=== PATIENT | female | born 1940 | race Caucasian/White ===

== ENCOUNTER → 2017-11-29 15:08 | Outpatient (CLI) | payer MEDICARE, SELFPAY ==
--- NOTE | 2017-11-29 15:13 | ECHOD_ITS ---
Reason For Study: Murmur Procedure This was a 2D Doppler, Color Flow transthoracic echocardiogram. Exam performed in department. Left Ventricle Normal LV size. Mild concentric left ventricular hypertrophy. The estimated ejection fraction is 55 %. Transmitral diastolic flow velocities suggest mild (stage 1) diastolic dysfunction (reversed pattern). No regional wall motion abnormalities noted. Right Ventricle Normal RV size. Normal systolic function. Atria Normal left atrium. Normal right atrium. Hypermobile atrial septum. Bubble contrast study negative for right to left interatrial shunt. Mitral Valve Normal mitral valve. Trivial eccentric mitral valve insufficiency. Tricuspid Valve Normal tricuspid valve. Mild (1+) tricuspid valve insufficiency. Pulmonary artery systolic pressure is 29 mmHg. Aortic Valve Trisinus/trileaflet aortic valve. Mild focal aortic valve calcification. Pulmonic Valve Normal pulmonic valve. Great Vessels Normal aortic root. The pulmonary artery is normal size. Normal inferior vena cava. Pericardium/Pleural No pericardial effusion. Medication 22 gauge I.V. with prn adaptor inserted into right arm. Performed a rapid injection of agitated mix of 9 cc saline and 1cc air to assess for atrial septal defect. MMode/2D Measurements & Calculations LVIDd: 3.5 cm IVSd: 1.2 cm LVOT diam: 1.9 cm LVIDs: 2.3 cm LVPWd: 1.3 cm LVOT area: 2.9 cm2 FS: 33.4 % Ao root diam: 2.9 cm LAV(MOD-bp): 41.9 ml LA dimension: 3.0 cm LAV(MOD-bp) Indexed: 29.0 ml/m2 LA A4 area: 14.7 cm2 LAV(MOD-sp2): 49.5 ml LAV(MOD-sp4): 35.6 ml RA A4 area: 12.4 cm2 Doppler Measurements & Calculations MV E max tom: 52.2 cm/sec Lat Peak E' Tom: 6.1 cm/sec Med Peak E' Tom: 2.8 cm/sec MV A max tom: 92.5 cm/sec E/E' lat: 8.5 E/E' med: 18.8 MV E/A: 0.56 Ao V2 max: 195.5 cm/sec LV V1 max: 127.5 cm/sec SV(LVOT): 78.0 ml Ao max P.3 mmHg LV V1 max P.5 mmHg Ao V2 mean: 139.6 cm/sec LV V1 mean P.2 mmHg Ao mean P.6 mmHg LV V1 mean: 84.7 cm/sec Ao V2 VTI: 40.9 cm LV V1 VTI: 26.6 cm SERGEY(I,D): 1.9 cm2 SERGEY(V,D): 1.9 cm2 PA V2 max: 98.2 cm/sec TR max tom: 258.7 cm/sec TR max P.8 mmHg Interpretation Summary Hypermobile atrial septum. Normal LV size. Mild concentric left ventricular hypertrophy. The estimated ejection fraction is 55 %. Transmitral diastolic flow velocities suggest mild (stage 1) diastolic dysfunction (reversed pattern). Mild (1+) tricuspid valve insufficiency. Pulmonary artery systolic pressure is 29 mmHg. Ordering Physician: Meghan Martinez Referring Physician: Meghan Martinez Performed By: Sherron Oakes RDCS
== END ==
PROVIDERS: Family Provider Family Medicine; PCP Family Medicine; Visit Provider Family Medicine
DX: R01.1 Cardiac murmur, unspecified (principal)
CPT/HCPCS: 93306

== ENCOUNTER 2018-12-24 17:29 | Emergency (ER) | payer MEDICARE, SELFPAY ==
[2018-12-24 17:30] VITALS: BP 154/93; PULSE 76; RESP 15; TEMP 36.6; O2SAT 94; BMI 22.3
--- NOTE | 2018-12-24 19:04 | US_ITS ---
STUDY: VENOUS DOPPLER ULTRASOUND - RIGHT LOWER EXTREMITY REASON FOR EXAM: Female, 78 years old. Lump behind right knee and calf pain TECHNIQUE: Ultrasound evaluation of the deep vein system to include garcias-scale imaging and compression was performed. Garcias-scale imaging and Doppler sonographic evaluation, including duplex spectral analysis and qualitative color flow sonography, was performed. COMPARISON: None. FINDINGS: Common Femoral Vein: Normal compression, spontaneity and augmentation. Normal color Doppler. Common Femoral Vein/Greater Saphenous Junction: Normal compression. No internal echoes are seen. Deep Femoral Vein: Not imaged Femoral Proximal: Normal compression. No internal echoes. Femoral Middle: Normal compression, spontaneity and augmentation. Normal color Doppler. Femoral Distal: Normal compression. No internal echoes. Popliteal Vein: Normal compression, spontaneity and augmentation. Normal color Doppler. Posterior Tibial Vein: Normal compression. No internal echoes. Peroneal Vein: Normal compression. No internal echoes. US/Venous Duplex Imag/Limited/Uni IMPRESSION: There is no evidence of deep venous thrombosis. No soft tissue lump or cyst is identified. Electronically Signed: Anupam Black MD at 20:04 EDT , Service support ,
--- NOTE | 2018-12-24 19:51 | ED.VISSUMM ---
- ER Visit Summary Date of Service: 12/24/18 Chief Complaint: Right calf pain History of Present Illness: The patient is a 78 F presenting with right calf pain. She states approximately 1 week ago she twisted her knee and felt that she sprained her knee. She states it was swollen. She has been wearing a knee brace. She has been limping. She states that her knee has improved and she now has pain of her right calf. She is able to ambulate. She denies chest pain or shortness of breath. Denies fever. Denies other complaints. Physical Examination: Vitals are stable. Patient is afebrile. Alert no acute distress. HEENT exam is unremarkable. Neck is supple. Lungs are clear and equal bilaterally. Heart is regular rate and rhythm. Extremities mild right calf tenderness. Knee is nontender. Normal distal pulses. No swelling, warmth, or erythema. Skin is warm and dry. No focal neurologic deficit. Remainder of exam is unremarkable. Emergency Department Course and Treatment: Ultrasound right lower extremity shows no evidence of DVT. Patient is advised to follow-up with her primary care physician. Advised return to ED if worsening complaints. Disposition: Discharge home Impression: Right lower extremity pain This note was generated with [employer] dictation software. It may contain incorrect words, spelling, and punctuation that were not noted in review of the chart prior to signing ED Disposition - Plan for ED Patient: Referrals: Meghan Martinez MD [Primary Care Provider] -
--- NOTE | 2018-12-24 19:57 | ED.DEP ---
ED Disposition - Plan for ED Patient: Instructions: Muscle Spasm Referrals: Meghan Martinez MD [Primary Care Provider] -
[2018-12-24 20:06] VITALS: BP 142/88; PULSE 94; RESP 16; O2SAT 97
== END 2018-12-24 20:06 | disposition home or self-care (01) ==
LOC: ED 19:15
PROVIDERS: Emergency Provider Emergency Medicine; Family Provider Family Medicine; PCP Family Medicine
DX: M79.661 Pain in right lower leg (principal)
CPT/HCPCS: 93971; 99282

== ENCOUNTER 2020-03-28 15:48 | Emergency (ER) | payer MEDICARE, SELFPAY ==
[2020-03-28 15:49] VITALS: BP 161/89; PULSE 74; RESP 16; TEMP 35.9; TEMP 36.5; O2SAT 97; BMI 23.6
--- NOTE | 2020-03-28 16:08 | ED.DCSUM_ITS ---
- ER Visit Summary Date of Service: 03/28/20 Chief Complaint: Fall History of Present Illness: The patient is a 79 F presenting after fall. This occurred on Sunday. She states she was walking on uneven driveway and lost her balance and fell. She complains of left hand and left hip pain. She is able to ambulate with pain. She has tried Tylenol and ibuprofen at home. She is not on anticoagulants. She did not hit her head or lose consciousness. Denies other injuries. Physical Examination: Vitals are stable. Patient is afebrile. Alert no acute distress. HEENT exam is unremarkable. Neck is nontender Lungs are clear and equal bilaterally. Heart is regular rate and rhythm. Abdomen is soft nontender nondistended. Extremities left posterior hip tenderness, neurovascularly intact distally. Left hand palmar abrasion Skin is warm and dry. No focal neurologic deficit. Remainder of exam is unremarkable. Emergency Department Course and Treatment: Patient was given tetanus IM. 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 No acute fracture noted. Lumbar xray shows mild scoliosis. Spondylosis. Grade 2 spondylolisthesis and spondylolysis L5-S1. Patient is able to ambulate in the emergency department. Bacitracin was applied to left hand abrasion. She is given prescription for [place]. Advised to follow-up with orthopedics as needed. Advised return to ED if worsening complaints. Disposition: Discharge home Impression: Status post mechanical fall, left hip contusion, left hand abrasion This note was generated with [employer] dictation software. It may contain incorrect words, spelling, and punctuation that were not noted in review of the chart prior to signing ED Disposition - Plan for ED Patient: Instructions: ED Mechanical Fall Prescriptions: Hydrocodone Bitart/Apap 5-325 [[place] 5MG-325MG] 1 tab PO Q6H PRN PRN 3 Days #10 tab PRN Reason: Pain Prescription Printed Referrals: Meghan Martinez MD [Primary Care Provider] - Alexandr Saavedra MD [STAFF PHYSICIAN] -
--- NOTE | 2020-03-28 16:20 | RAD_ITS ---
STUDY: X-RAY - PELVIS AND LEFT HIP REASON FOR EXAM: Female, 79 years old. PAIN S/P FALL X2 DAYS AGO TECHNIQUE: 3 views of the pelvis and hip. COMPARISON: 05/09/2017 FINDINGS: There is a non-specific bowel gas pattern. Normal visualized soft tissue structures. Bilateral total hip arthroplasty in anatomic alignment. Normal bilateral iliac wings, sacroiliac joints and visualized sacrum. Normal bilateral superior and inferior pubic rami. Normal pubic symphysis. Normal bilateral ischial tuberosities. Normal visualized femoral head. Normal acetabulum. Normal hip joint. RAD/HIP, UNI W/ Pelvis 2-3 Views IMPRESSION: Bilateral total hip arthroplasties. No acute fracture noted. Electronically Signed: Froylan Stern MD at 16:56 EST , Service support ,
--- NOTE | 2020-03-28 16:20 | RAD_ITS ---
STUDY: X-RAY - LUMBAR SPINE REASON FOR EXAM: Female, 79 years old. PAIN S/P FALL X2 DAYS AGO TECHNIQUE: 3 view(s) of the lumbar spine were obtained. COMPARISON: None FINDINGS: Normal lumbar lordosis. Mild dextroconvex scoliosis. Grade 2 spondylolisthesis L5-S1. Pars defects. Moderate spondylosis. Normal vertebral bodies and endplates. There is multi-level degenerative disc disease with multi-level disc space narrowing. The soft tissue structures are unremarkable. RAD/Lumbar Spine 2 or 3 Views IMPRESSION: Mild scoliosis. Spondylosis. Grade 2 spondylolisthesis and spondylolysis L5-S1. Electronically Signed: Froylan Stern MD at 16:58 EST , Service support ,
--- NOTE | 2020-03-28 16:20 | RAD_ITS ---
STUDY: X-RAY - LEFT HAND REASON FOR EXAM: Female, 79 years old. PAIN S/P FALL X2 DAYS AGO TECHNIQUE: 3 view(s) of the hand. COMPARISON: None. FINDINGS: Normal radiocarpal articulation. Normal distal radioulnar joint. Normal visualized carpal bones. Normal carpal articulations There is degenerative arthrosis of the carpometacarpal (CMC) articulation of the thumb. Normal second through fifth carpometacarpal joints. Normal metacarpi. Normal metacarpophalangeal joint of the thumb. Normal interphalangeal joint of the thumb. Normal proximal and distal phalanges of the thumb. Normal metacarpophalangeal joints of the second through fifth fingers. There is diffuse articular joint space narrowing of the proximal and distal interphalangeal joints of the second through fifth fingers, but without erosive changes or periarticular soft tissue swelling. Normal phalanges of the second through fifth fingers. The soft tissue structures are unremarkable. RAD/Hand Min 3 Views IMPRESSION: Degenerative joint disease of the hand, as described above. Electronically Signed: Froylan Stern MD at 16:54 EST , Service support ,
[2020-03-28] MEDS: Diphth,Pertuss(Acell),Tet Vac 0.5 ML Vial IM (16:33)
--- NOTE | 2020-03-28 17:08 | ED.DEP ---
ED Disposition - Plan for ED Patient: Instructions: ED Mechanical Fall Prescriptions: Hydrocodone Bitart/Apap 5-325 [[place] 5MG-325MG] 1 tab PO Q6H PRN PRN 3 Days #10 tab PRN Reason: Pain Prescription Printed Referrals: Meghan Martinez MD [Primary Care Provider] - Alexandr Saavedra MD [STAFF PHYSICIAN] -
== END 2020-03-28 17:32 | disposition home or self-care (01) ==
LOC: ED 16:44
PROVIDERS: Emergency Provider Emergency Medicine; PCP Family Medicine
DX: M25.552 Pain in left hip (principal); S70.02XA Contusion of left hip, initial encounter; S60.512A Abrasion of left hand, initial encounter; W19.XXXA Unspecified fall, initial encounter
CPT/HCPCS: 72100; 73130; 73502; 90471; 90715; 99282

== ENCOUNTER 2021-09-16 23:34 | Emergency (ER) | payer MEDICARE, SELFPAY ==
--- NOTE | 2021-09-16 00:10 | RAD_ITS ---
STUDY: AP PORTABLE UPRIGHT CHEST X-RAY OF 0011 HOURS ON 09/17/2021 REASON FOR EXAM: 81-year-old female with chest pain. TECHNIQUE: A single view AP portable upright chest x-ray was performed per protocol. COMPARISON: 10/26/2013. FINDINGS: Mild demineralization. Mild cardiomegaly with a left ventricular cardiac configuration. No heart failure. No pulmonary infiltrates, atelectasis, effusion, or pulmonary mass lesions. No significant interval change since previous study of 10/26/2013. RAD/Chest 1 View (Portable) IMPRESSION: 1. Mild cardiomegaly with a left ventricular cardiac configuration, but no heart failure. 2. No other evidence of active cardiopulmonary disease. 3. Mild demineralization. 4. No interval change since the previous study of 10/26/2013. Electronically Signed: Will Byrne MD at 0:47 EDT ,
[2021-09-16 23:35] VITALS: BP 219/110; PULSE 73; RESP 18; TEMP 36.7; O2SAT 99; BMI 22.1
[2021-09-16 23:57] VITALS: BP 186/96; PULSE 71; RESP 22; O2SAT 99
--- NOTE | 2021-09-16 23:57 | EKG12_ITS ---
Test Reason : HTN Blood Pressure : / mmHG Vent. Rate : 075 BPM Atrial Rate : 075 BPM P-R Int : 178 ms QRS Dur : 138 ms QT Int : 436 ms P-R-T Axes : 005 123 -52 degrees QTc Int : 486 ms Normal sinus rhythm Non-specific intra-ventricular conduction block Marked T-wave abnormality, consider inferolateral ischemia Abnormal ECG Confirmed by RUFUS FRENCH, SPARKLE ([id number]), production editor MARLON JUDD ([id number]) on 09/19/2021 1:26:12 PM Referred By: LINNEA Confirmed By:SPARKLE HOOPER MD
--- NOTE | 2021-09-16 23:58 | EDS_ITS ---
HPI History of Present Illness Chief Complaint: Hypertension Informant: patient Narrative Narrative: Patient presented to the emergency room phyllis asking for blood pressure check. She states that she checked her blood pressure in her daughter's cuff about a month ago and it was quite high. She has yet to follow- up with her doctor about this. Tonight she felt like her blood pressure was high and start developing some chest tightness around 9 PM. She denies shortness of breath. Blood pressure on arrival 219/110. Patient denies history of documented high blood pressure and has never been on antihypertensives. She does state that she was very busy today with errands and did not eat or drink much. PFSH PFS Medical History (Updated 09/17/21 @ 03:[address] Ivette Vasquez MD) Arthritis Hypertension Medical History no medical history no medical history Home Medications ascorbic acid (vitamin C) [Vitamin C] 1,000 mg PO DAILY 04/23/17 [History Last Taken Unknown] cholecalciferol (vitamin D3) 5,000 unit PO DAILY 04/23/17 [History Last Taken Unknown] cyanocobalamin (vitamin B-12) 1,000 mcg SUBLINGUAL DAILY 04/23/17 [History Last Taken Unknown] multivitamin [Multiple Vitamins] 1 ea PO DAILY 04/23/17 [History Last Taken Unknown] vitamin B complex [B Complex-Vitamin B12] 1 ea PO DAILY 04/23/17 [History Last Taken Unknown] vitamin E 1,600 unit PO DAILY 04/23/17 [History Last Taken Unknown] acetaminophen 1,000 mg PO Q8 #90 tab 05/11/17 [Rx Last Taken Unknown] Allergy/AdvReac Type Severity Reaction Status Date / Time latex Allergy Unknown Verified 09/16/21 23:37 Surgical History (Updated 09/17/21 @ 00:[address] Ivette Vasquez MD) History of bilateral tubal ligation History of blepharoplasty History of tonsillectomy and adenoidectomy History of total left hip replacement History of total right hip replacement S/P hemorrhoidectomy Status post endovenous radiofrequency ablation of saphenous vein Social History (Updated 09/17/21 @ 00:[address] Ivette Vasquez MD) household members: none Smoking Status: Never smoker alcohol intake: current alcohol intake frequency: a few times a month substance use type: does not use ROS ROS ED Constitutional Constitutional ED: Denies chills or fever(s) Eyes Eyes: Denies change in vision ENT ENT ED: Denies sore throat Cardiovascular Cardiovascular: Reports chest pain Respiratory/Chest Respiratory/Chest: Denies cough or dyspnea Gastrointestinal Gastrointestinal: Denies abdominal pain, nausea or vomiting Genitourinary Genitourinary ED: Denies dysuria Musculoskeletal Musculoskeletal: Denies back pain or neck pain Integumentary Denies rash Neurologic Neurologic: Denies headache(s) or weakness Allergic/Immunologic Allergic/Immunologic ED: Denies urticaria EXAM Physical Exam Const Vital Signs: 09/16/21 23:35 09/16/21 23:57 09/17/21 00:38 Temperature 98.1 F Temperature Source Temporal Pulse Rate 73 71 Respiratory Rate 18 22 H Respiratory Pattern Normal Blood Pressure 219/110 H 186/96 H Blood Pressure Mean 146 126 Pulse Ox 99 99 Oxygen Delivery Method Room Air Room Air 09/17/21 02:02 09/17/21 02:48 Temperature 98.2 F Temperature Source Pulse Rate 74 Respiratory Rate 17 Respiratory Pattern Blood Pressure 176/93 H 149/89 H Blood Pressure Mean 120 Pulse Ox 98 Oxygen Delivery Method Positive well nourished and well developed General Appearance ED: well developed HEENT Reports moist mucous membranes Eyes PERRL and EOMs intact bilaterally Neck supple Chest Wall inspection of chest normal and palpation of chest normal Resp normal respiratory effort and clear to auscultation bilaterally Cardio regular rate and regular rhythm GI normal to inspection, nondistended, normoactive bowel sounds and non-tender Palpation: soft Extremity normal to inspection Neuro oriented x3 Sensorium / Orientation: alert Psych mental status grossly normal Skin no rashes or lesions noted MDM MDM MDM Narrative Medical decision making narrative: Patient placed on cardiac monitoring given aspirin. Lab work, EKG, chest x-ray obtained. Labetalol was initially given however patient's blood pressure came down to the 150s systolic without any intervention. Lab Data Attestation: I reviewed the patient's lab results. Labs: Laboratory Results - last 24 hr 09/17/21 09/17/21 09/17/21 00:01 00:01 02:01 WBC 7.1 RBC 4.57 Hgb 13.7 Hct 40.6 MCV 88.8 MCH 30.0 MCHC 33.7 RDW Std Deviation 43.0 RDW Coeff of Nicola 13.2 Plt Count 283 MPV 9.4 Immature Gran % (Auto) 0.400 Neut % (Auto) 61.3 Lymph % (Auto) 28.6 Williams % (Auto) 6.6 Eos % (Auto) 2.4 Baso % (Auto) 0.7 Absolute Neuts (auto) 4.4 Absolute Lymphs (auto) 2.04 Nucleated RBC % 0 Sodium 136 Potassium 3.6 Chloride 100 Carbon Dioxide 30.0 Anion Gap 6 BUN 21 H Creatinine 0.71 Estim Creat Clear Calc 37.12 Est GFR (MDRD) Af Amer 102 Est GFR (MDRD) Non-Af 84 BUN/Creatinine Ratio 29.6 H Glucose 104 Calcium 9.3 Troponin I High Sens 9 11 Radiography Chest X-Ray - ED: 1 View, Read by ED Physician and Chronic Changes Diagnostic Testing: Clinical Impression(s) from Imaging Studies Chest X-Ray 09/16/21 00:10 IMPRESSION: 1. Mild cardiomegaly with a left ventricular cardiac configuration, but no heart failure. 2. No other evidence of active cardiopulmonary disease. 3. Mild demineralization. 4. No interval change since the previous study of 10/26/2013. Electronically Signed: Will Byrne MD at 0:47 EDT , EKG Initial EKG: Attestation: I personally reviewed and interpreted this EKG as follows: Interpretation: Sinus Rhythm (Sinus at 75 with intraventricular block. Similar in appearance to prior EKG from 2017. No acute ischemia.) Treatment and Re-Evaluation Narrative: Repeat evaluation patient resting comfortably. Denies chest pain at this time. Initial lab work unremarkable with troponin of 9. Delta troponin obtained. Repeat troponin is 11 for a delta of 2. At this time blood pressure remains 156 systolic. I asked her to keep a journal of her blood pressures and follow-up with her PCP. I will speak with her PCP in the morning or whoever is covering to ensure they are aware of her need for follow-up as she may be calling for advice this weekend. Return instructions are provided. Discharge Plan Triage Chief Complaint: Hypertension ED Provider: Bianca Mccauley Dx/Rx/DC Orders Clinical Impression: Hypertension, Chest pain Instructions: ED Chest Pain, Uncertain Cause, ED Hypertension, To Be Confirmed Prescriptions: No Action multivitamin [Multiple Vitamins] 1 EACH tablet 1 ea PO DAILY RF: 0 ascorbic acid (vitamin C) [Vitamin C] 1,000 MG tablet 1,000 mg PO DAILY RF: 0 vitamin B complex [B Complex-Vitamin B12] 1 EACH tablet 1 ea PO DAILY RF: 0 cyanocobalamin (vitamin B-12) 1,000 MCG Tab.Subl 1,000 mcg sublingual DAILY RF: 0 cholecalciferol (vitamin D3) 5,000 UNIT capsule 5,000 unit PO DAILY RF: 0 vitamin E 400 UNIT capsule 1,600 unit PO DAILY RF: 0 acetaminophen 500 MG tablet 1,000 mg PO Q8 Qty: 90 RF: 0 Primary Care Provider: Meghan Martinez Referrals: Meghna Martinez MD [Primary Care Provider] - As soon as possible Disposition Disposition: Home, Self Care Discharge Date/Time: 09/17/21 02:49
[2021-09-17 00:14] LABS: Absolute Lymphocyte Count 2.04 X10^3/uL (0.83-4.51); Absolute Neutrophil Count 4.4 X10^3/uL (2.0-7.7); Basophil# 0.05 X10^3/uL; Basophil% 0.7 % (0-1); Eosinophil# 0.17 X10^3/uL; Eosinophils% 2.4 % (0-5); Hematocrit 40.6 % (37-47); Hemoglobin 13.7 g/dL (12.0-15.0); Lymphocyte # 2.04 X10^3/ul (0.83-4.51); Lymphocyte % 28.6 % (19-41); Mean Corp Hgb Conc 33.7 g/dL (32-36); Mean Corpuscular Volume 88.8 fL (81-99); Mean Platelet Vol. 9.4 fl (6.2-12.0); Monocyte# 0.47 X10^3/uL; Monocyte% 6.6 % (0-10); NRBC Flagged by Analyzer 0 % (0-5); Neutrophil # 4.37 X10^3/uL (2.7-7.7); Neutrophil % 61.3 % (47-70); Platelet Count 283 K/mm3 (150-450); RBC Distribution Width CV 13.2 % (11.6-14.6); Red Blood Count 4.57 M/mm3 (4.2-5.4); White Blood Count 7.1 K/mm3 (4.4-11.0)
[2021-09-17] MEDS: Aspirin 81 MG TAB.CHEW 324 MG PO (00:30)
[2021-09-17 00:31] LABS: Anion Gap 6 (5-15); BUN 21 mg/dL (7-18); BUN/Creat Ratio 29.6 RATIO (10-20); Calcium,Total 9.3 mg/dL (8.5-10.1); Chloride 100 mmol/L (98-107); Creatinine, Serum 0.71 mg/dL (0.55-1.02); EST Glomerular Filtration Rate 84 mL/min (>60); Est Glom Filt Rate - Afr Amer 102 mL/min (>60); Estimated Creatinine Clearance 37.12 ml/min; Glucose 104 mg/dL (74-106); Potassium 3.6 mmol/L (3.5-5.1); Sodium Level 136 mmol/L (136-145); Troponin-I HS (w/2H Reflex) 9 pg/mL (3.0-54.0)
[2021-09-17 02:02] VITALS: BP 176/93
[2021-09-17 02:11] LABS: Reflex Troponin-HS? (from REC) Y
[2021-09-17 02:32] LABS: Troponin-I HS 11 pg/mL (3.0-54.0)
[2021-09-17 02:48] VITALS: BP 149/89; PULSE 74; RESP 17; TEMP 36.8; O2SAT 98
--- NOTE | 2021-09-20 15:54 | CM.ED ---
ER RNCM DC F/u Call: ED Visit 09/16/21 for HTN Called patient listed cell phone number on demographics. No answer and VM did not identify correct identity as well as mailbox full and unable to leave VM. Bryce Hernandez RNCM
== END 2021-09-17 02:49 | disposition home or self-care (01) ==
PROVIDERS: Emergency Provider Emergency Medicine; PCP Family Medicine; Visit Provider Emergency Medicine
DX: I10 Essential (primary) hypertension (principal); R07.9 Chest pain, unspecified
CPT/HCPCS: 71045; 80048; 84484; 85025; 93005; 99283; A4216

== ENCOUNTER 2024-01-03 11:04 | Emergency (ER) | payer MEDICARE, SELFPAY ==
[2024-01-03 11:05] VITALS: BP 152/97; PULSE 76; RESP 14; RESP 20; TEMP 36.3; O2SAT 96; O2SAT 97
--- NOTE | 2024-01-03 11:17 | EX.ED.DYSGE1 ---
HPI History of Present Illness Chief Complaint: Allergic Reaction Detail of Chief Complaint: Bee sting x 2 to the lower lip. Swelling. Informant: patient Onset/Context/Timing Onset: Today and Hours Context: Sudden Onset Timing: Continuous Current Severity: Moderate Maximum Severity: Moderate Narrative Narrative: Healthy 83-year-old female was doing some gardening when she got stung on her lower lip x 2 about 2 hours ago. Has had lip and tongue swelling since then. Able to breathe. No wheezing. No history of anaphylaxis. She is currently on no medications. Prior similar symptoms: No Recent Illness/Hospitalization: No PFSH PFS Medical History Hypertension Arthritis Home Medications ?Medication ?Instructions ?Recorded ?Last Taken ?Type ascorbic acid (vitamin C) 1,000 mg 1,000 mg PO DAILY supplement 04/23/17 Unknown History tablet (Vitamin C) cholecalciferol (vitamin D3) 125 5,000 unit PO DAILY supplement 04/23/17 Unknown History mcg (5,000 unit) capsule cyanocobalamin (vitamin B-12) 1,000 mcg sublingual DAILY 04/23/17 Unknown History 1,000 mcg sublingual tablet supplement multivitamin (Multiple Vitamins 1 ea PO DAILY supplement 04/23/17 Unknown History tablet) vitamin B complex (B 1 ea PO DAILY supplement 04/23/17 Unknown History Complex-Vitamin B12 tablet) vitamin E 268 mg (400 unit) capsule 1,600 unit PO DAILY supplement 04/23/17 Unknown History acetaminophen 500 mg tablet 1,000 mg (2 x 500 mg) PO Q8 #90 05/11/17 Unknown Rx tabs prednisone 20 mg tablet 40 mg (2 x 20 mg) PO DAILY 3 days 01/03/24 Unknown Rx #6 tabs Allergy/AdvReac Type Severity Reaction Status Date / Time latex Allergy Unknown Verified 09/16/21 23:37 Surgical History History of blepharoplasty History of total right hip replacement Status post endovenous radiofrequency ablation of saphenous vein S/P hemorrhoidectomy History of tonsillectomy and adenoidectomy History of bilateral tubal ligation History of total left hip replacement Social History household members: none Smoking Status: Never smoker alcohol intake: current alcohol intake frequency: a few times a month substance use type: does not use ROS ROS ED ROS Narrative Denies recent illness. Constitutional Constitutional ED: Denies chills or fever(s) Eyes Eyes: Denies blurry vision ENT ENT ED: Denies ear pain Cardiovascular Cardiovascular: Denies chest pain Respiratory/Chest Respiratory/Chest: Denies cough or dyspnea Gastrointestinal Gastrointestinal: Denies abdominal pain Genitourinary Genitourinary ED: Denies dysuria or hematuria Musculoskeletal Musculoskeletal: Denies arthralgias, back pain, myalgias or neck pain Integumentary Denies abscess or Abrasions Neurologic Neurologic: Denies headache(s) Psychiatric Psychiatric: Denies anxiety Endocrine Endocrinology: Denies cold intolerance Hematologic/Lymphatic Hematologic/Lymphatic: Reports none Allergic/Immunologic Allergic/Immunologic ED: Denies mouth swelling, tongue swelling or urticaria EXAM Physical Exam Narrative Exam Narrative: 83-year-old female vital signs stable afebrile. Pulse ox 97% on room air no hypoxia. H EENT exam pupils round react to light. She has moderate swelling to her lower lip. Tongue is mildly swollen on the right. No trouble breathing or swallowing. No stridor. Neck nontender. Lungs clear equal and symmetric. Heart regular rhythm rate about 75. Chest wall nontender. Abdomen soft. Moving all 4 extremities. Nontender. No edema. No hives. She is awake and alert. Const Vital Signs: 01/03/24 11:05 01/03/24 11:05 01/03/24 12:04 Temperature 97.4 F L 98.1 F Temperature Source Temporal Oral Pulse Rate 76 76 73 Respiratory Rate 14 20 H 15 Blood Pressure 152/97 H 152/97 H 152/85 H Blood Pressure Mean 115 115 107 Pulse Ox 97 96 97 Oxygen Delivery Method Room Air Room Air Room Air 01/03/24 13:08 Temperature Temperature Source Pulse Rate 73 Respiratory Rate 17 Blood Pressure 160/84 H Blood Pressure Mean 109 Pulse Ox 98 Oxygen Delivery Method Room Air Positive well nourished and well developed; Negative for cachectic, contractures or unkempt General Appearance ED: well developed and NAD; Negative for unkempt, cachectic, contractures, cyanotic, diaphoretic or pallor Nutritional Appearance: Negative for cachectic HEENT Reports moist mucous membranes; Denies dry mucous membranes HEENT Narrative: Swelling of her lower lip and tongue. Negative for trauma or tenderness Mouth ED: No dry mucous membranes Mouth: No dry mucous membranes Eyes PERRL and EOMs intact bilaterally General Eye ED: Negative for pale conjunctiva, scleral icterus or other Neck no lymphadenopathy, supple and no JVD General: Negative for tenderness Lymph Lymphatic: Negative for other Chest Wall inspection of chest normal and palpation of chest normal Resp normal respiratory effort and clear to auscultation bilaterally Effort and Inspection: Negative for retractions Auscultation: Negative for rales, rhonchi or wheezes Cardio regular rate, regular rhythm, S1 normal heart sound, S2 normal heart sound and no murmurs GI normal to inspection, nondistended, normoactive bowel sounds, non-tender, non-distended and no masses Palpation: soft; Negative for tender, guarding or rebound tenderness present Back/Spine no CVA tenderness Extremity normal to inspection General Extremety ED: Negative for edema or tenderness General Extremity: Negative for edema Neuro oriented x3 and CN's II-XII intact bilaterally Sensorium / Orientation: alert; Negative for lethargic or stuporous Motor Exam: strength 5/5 throughout Psych mental status grossly normal Appearance: Negative for unkempt Attitude: No agitated Mood & Affect: Negative for depressed, anxious or tearful Skin no rashes or lesions noted, no wounds and skin turgor normal General Skin Exam: Negative for jaundice or pallor Rashes: No rashes noted Trauma: Negative for abrasion Wounds: Negative for wounds noted MDM MDM MDM Narrative Medical decision making narrative: 83-year-old female acute allergic reaction to being stung on her bottom lip x 2 about 2 hours ago. She will be given IV Solu-Medrol and Benadryl. Apply an ice pack. Currently her airway is stable. Repeat exam patient doing well at 1:10 PM. It is now been 5 hours since she was stung. The swelling of her lip is getting much better. The tongue is resolved. She is having no trouble swallowing or breathing. She feels much improved. She was treated here with Solu-Medrol and Benadryl. She is comfortable being discharged home. Ice to the area. Return if worse. History & Record Review Discussion w/independent historian: Patient Discharge Plan Triage Chief Complaint: Allergic Reaction ED Provider: Boston Chavarria Dx/Rx/DC Orders Clinical Impression: Bee sting, Allergic reaction Instructions: ED Insect Sting, Local Reaction Prescriptions: New prednisone 20 mg tablet 40 mg PO DAILY 3 Days Qty: 6 0RF No Action multivitamin [Multiple Vitamins] 1 EACH tablet 1 ea PO DAILY ascorbic acid (vitamin C) [Vitamin C] 1,000 MG tablet 1,000 mg PO DAILY vitamin B complex [B Complex-Vitamin B12] 1 EACH tablet 1 ea PO DAILY cyanocobalamin (vitamin B-12) 1,000 MCG tablet, sublingual 1,000 mcg sublingual DAILY cholecalciferol (vitamin D3) 5,000 UNIT capsule 5,000 unit PO DAILY vitamin E 400 UNIT capsule 1,600 unit PO DAILY acetaminophen 500 MG tablet 1,000 mg PO Q8 Qty: 90 0RF Primary Care Provider: Meghan Martinez Referrals: Meghan Martinez MD [Primary Care Provider] - Activity Restrictions/Additional Instructions: Ice to your lips. Benadryl as needed for the allergic reaction. If it start getting worse get the prednisone which is a steroid fell and you can use it but most likely will not need it. Print Language: Chadian Disposition Disposition: Home, Self Care
[2024-01-03] MEDS: DiphenhydrAMINE 50 MG/ML Syringe 25 MG IV (11:34)
[2024-01-03] MEDS: MethylPREDNISolone 125 MG/2 ML Vial IV (11:35)
--- NOTE | 2024-01-03 11:57 | ED.RN ---
DR MANTILLA CHECKED ON PT AND FEELS SWELLING ON TONGUE AND LIPS HAS IMPROVED. INFORMED PT AND FRIEND THAT WE WILL CONTINUE TO OBSERVE HER AND SHE SHOULD BE ABLE TO GO HOME LATER.
[2024-01-03 12:04] VITALS: BP 152/85; PULSE 73; RESP 15; TEMP 36.7; O2SAT 97
[2024-01-03 13:08] VITALS: BP 160/84; PULSE 73; RESP 17; O2SAT 98
[2024-01-03 13:31] VITALS: BP 143/79; PULSE 98; RESP 14; TEMP 36.6; O2SAT 100
== END 2024-01-03 13:36 | disposition home or self-care (01) ==
PROVIDERS: Emergency Provider Emergency Medicine; PCP Family Medicine; Visit Provider Emergency Medicine
DX: T63.441A Toxic effect of venom of bees, accidental (unintentional), initial encounter (principal); I10 Essential (primary) hypertension
CPT/HCPCS: 96374; 96375; 99283; A4216

== ENCOUNTER 2024-01-05 09:51 | Emergency (ER) | payer MEDICARE, SELFPAY ==
[2024-01-05 09:52] VITALS: BP 128/98; PULSE 81; RESP 16; TEMP 36.6; O2SAT 97; BMI 24.1
--- NOTE | 2024-01-05 10:03 | ED.RN ---
PT TAKEN BACK TO ROOM, ASKED TO GET INTO A GOWN. PT STATES I AM JUST GONNA LEAVE AND GO HR ASSISTANT MY PREDNISONE. PT STATES I JUST THOUGHT THEY WOULD DO IV PREDNISONE. PT AMBULATORY OFF UNIT
== END 2024-01-05 10:04 | disposition left against medical advice (07) ==
LOC: ED 10:17
PROVIDERS: PCP Family Medicine
DX: Z53.21 Procedure and treatment not carried out due to patient leaving prior to being seen by health care provider (principal)
CPT/HCPCS: 99281

== ENCOUNTER 2024-05-31 13:51 | Emergency (ER) | payer MEDICARE, SELFPAY ==
[2024-05-31 13:53] VITALS: BP 179/96; PULSE 79; RESP 16; TEMP 36.7; O2SAT 97; BMI 24.5
--- NOTE | 2024-05-31 15:00 | RAD_ITS ---
INDICATION: injury EXAMINATION/TECHNIQUE: X-RAY - RIGHT XR Shoulder Min 2 Views 4 VIEWS COMPARISON: No relevant prior comparison study available FINDINGS: SOFT TISSUES: No soft tissue swelling or gas. No radiopaque foreign body. BONES/JOINTS: Lucency in the base of the humeral neck concerning for fracture of undetermined age.. Mild narrowing of the glenohumeral joint. The acromioclavicular joint is unremarkable. No sclerotic or destructive changes observed. RAD/Shoulder min 2 Views IMPRESSION: Fracture of the humeral head of undetermined age. Acute fracture cannot be excluded. Electronically Signed: Skinny Lowe MD at 15:55 EST ,
--- NOTE | 2024-05-31 15:00 | RAD_ITS ---
INDICATION: injury EXAMINATION/TECHNIQUE: X-RAY - RIGHT XR Elbow Min 3 Views COMPARISON: No relevant prior comparison study available FINDINGS: SOFT TISSUES: Soft tissue swelling of the posterior aspect of the elbow. No radiopaque foreign body. BONES/JOINTS: Displaced fracture of the lateral process of the proximal ulna. No evidence of dislocation. No sclerotic or destructive changes observed. RAD/Elbow min 3 Views IMPRESSION: Displaced fracture of the lateral process. Electronically Signed: Skinny Lowe MD at 15:53 EST ,
[2024-05-31] MEDS: Ibuprofen 200 MG Tablet 400 MG PO (16:13)
--- NOTE | 2024-05-31 16:22 | EDS_ITS ---
HPI History of Present Illness Chief Complaint: Upper Extremity Injury Informant: patient Narrative Narrative: 84-year-old female presenting to the emergency room with a fall. Patient states that she fell yesterday injuring her right shoulder and right elbow. She states that she had some swelling posteriorly over the left elbow but it has now become significantly worse and she has limited range of motion particularly extension. She also notes some pain to the posterior trapezius scapular region of the shoulder. It is worse when she lifts her arm into abduction. She notes abrasions to her hand. She denies any paresthesias or numbness to the hand. She is not on any anticoagulants. She states she has been taking ibuprofen which has been significant helping. The patient has seen Dr. Saavedra in the past for her hip surgery. She denies striking her head. She denies any midline neck pain. 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 She is worried that she is not going to be able to work. [facility] Medical History Hypertension Arthritis Home Medications ?Medication ?Instructions ?Recorded ?Last Taken ?Type ascorbic acid (vitamin C) 1,000 mg 1,000 mg PO DAILY supplement 04/23/17 Unknown History tablet (Vitamin C) cholecalciferol (vitamin D3) 125 5,000 unit PO DAILY supplement 04/23/17 Unknown History mcg (5,000 unit) capsule cyanocobalamin (vitamin B-12) 1,000 mcg sublingual DAILY 04/23/17 Unknown History 1,000 mcg sublingual tablet supplement multivitamin (Multiple Vitamins 1 ea PO DAILY supplement 04/23/17 Unknown History tablet) vitamin B complex (B 1 ea PO DAILY supplement 04/23/17 Unknown History Complex-Vitamin B12 tablet) vitamin E 268 mg (400 unit) capsule 1,600 unit PO DAILY supplement 04/23/17 Unknown History acetaminophen 500 mg tablet 1,000 mg (2 x 500 mg) PO Q8 #90 05/11/17 Unknown Rx tabs prednisone 20 mg tablet 40 mg (2 x 20 mg) PO DAILY 3 days 01/03/24 Unknown Rx #6 tabs oxycodone-acetaminophen 5 mg-325 1 tab PO Q6H PRN pain 3 days #12 05/31/24 Unknown Rx mg tablet (Percocet) tabs Allergy/AdvReac Type Severity Reaction Status Date / Time latex Allergy Unknown Verified 05/31/24 13:53 Surgical History History of blepharoplasty History of total right hip replacement Status post endovenous radiofrequency ablation of saphenous vein S/P hemorrhoidectomy History of tonsillectomy and adenoidectomy History of bilateral tubal ligation History of total left hip replacement Social History household members: none Smoking Status: Never smoker alcohol intake: current alcohol intake frequency: a few times a month substance use type: does not use ROS ROS ED Constitutional Constitutional ED: Denies chills or weight loss Eyes Eyes: Denies change in vision or diplopia ENT ENT ED: Denies ear pain, rhinorrhea or sore throat Cardiovascular Cardiovascular: Denies chest pain, orthopnea, palpitations or racing heartbeat Respiratory/Chest Respiratory/Chest: Denies cough, dyspnea or orthopnea Gastrointestinal Gastrointestinal: Denies abdominal pain, diarrhea, nausea or vomiting Genitourinary Genitourinary ED: Denies dysuria, hematuria or urinary frequency Musculoskeletal Musculoskeletal: Reports other Details: See history of present illness ; Denies arthralgias or myalgias Integumentary Reports Abrasions; Denies abscess or rash Neurologic Neurologic: Denies headache(s) or weakness Psychiatric Psychiatric: Denies anxiety, depression, suicidal ideation or suicidal thoughts Endocrine Endocrinology: Denies polydipsia, polyphagia or polyuria Allergic/Immunologic Allergic/Immunologic ED: Denies mouth swelling, tongue swelling or urticaria EXAM Physical Exam Const Vital Signs: 05/31/24 13:53 Temperature 98.1 F Temperature Source Oral Pulse Rate 79 Respiratory Rate 16 Blood Pressure 179/96 H Blood Pressure Mean 123 Pulse Ox 97 Oxygen Delivery Method Room Air Positive well nourished and well developed General Appearance ED: well developed and NAD HEENT Reports normocephalic, head/scalp atraumatic and moist mucous membranes Eyes PERRL and EOMs intact bilaterally Neck no lymphadenopathy, supple and no JVD Resp normal respiratory effort and clear to auscultation bilaterally Cardio regular rate, regular rhythm and no murmurs GI normal to inspection, nondistended, normoactive bowel sounds and non-tender Palpation: soft Back/Spine no CVA tenderness and normal ROM Extremity Extremity Narrative: Patient notes tenderness to palpation over the suprascapular trapezius region over the lateral posterior neck area. She denies any tenderness over the proximal humerus area. There is no obvious deformity there. The right elbow is significantly swollen and ecchymotic. There is diffuse tenderness. There is superficial abrasion to the right hand. Neurovascularly however she appears intact. Limited range of motion at the elbow joint. General Extremety ED: Negative for edema General Extremity: Negative for edema Neuro oriented x3 and CN's II-XII intact bilaterally Sensorium / Orientation: alert Motor Exam: strength 5/5 throughout Psych mental status grossly normal Mood & Affect: Negative for depressed or tearful Skin no rashes or lesions noted and no wounds MDM MDM MDM Narrative Medical decision making narrative: Differential diagnosis includes elbow fracture elbow effusion traumatic bursitis tendon rupture shoulder sprain proximal humerus fracture dislocation subluxation rotator cuff tendon injury My independent interpretation of the plain films of the right elbow is a displaced olecranon fracture. My independent interpretation of the plain films of the right shoulder is a possible proximal humerus fracture. However it is not where the patient is hurting and it does appear possible that it is an older fracture. Clinically however the patient needs to be placed in a splint. Working to place her. Rather than 90 degrees to have her placed not quite into full extension. She would like a sling which I think would be beneficial but difficult given how she is splinted. I spoke with Dr. Benitez from orthopedics. They will be able to follow-up with the patient on Sunday. Patient has asked for ibuprofen which I gave her. I asked her if she wanted anything stronger she was not sure. I will write for a few oxycodone tablets in case her pain gets worse over the next few days. Patient understands follow-up and return instructions History & Record Review Discussion w/independent historian: Patient Radiography Diagnostic Testing: Clinical Impression(s) from Imaging Studies Elbow X-Ray 05/31/24 15:00 IMPRESSION: Displaced fracture of the lateral process. Electronically Signed: Skinny Lowe MD at 15:53 EST , Shoulder X-Ray 05/31/24 15:00 IMPRESSION: Fracture of the humeral head of undetermined age. Acute fracture cannot be excluded. Electronically Signed: Skinny Lowe MD at 15:55 EST , Management Discussion w/another healthcare provider: [employer] Furnace [employer] (Orthopedics (Dr Benitez)) Discharge Plan Triage Chief Complaint: Upper Extremity Injury ED Provider: José Jimenez Dx/Rx/DC Orders Clinical Impression: Fall, Olecranon fracture, Sprain of right shoulder Instructions: ED Elbow Fracture Prescriptions: New oxycodone-acetaminophen [Percocet] 5-325 mg tablet 1 tab PO Q6H PRN (Reason: pain) 3 Days Qty: 12 0RF No Action multivitamin [Multiple Vitamins] 1 EACH tablet 1 ea PO DAILY ascorbic acid (vitamin C) [Vitamin C] 1,000 MG tablet 1,000 mg PO DAILY vitamin B complex [B Complex-Vitamin B12] 1 EACH tablet 1 ea PO DAILY cyanocobalamin (vitamin B-12) 1,000 MCG tablet, sublingual 1,000 mcg sublingual DAILY cholecalciferol (vitamin D3) 5,000 UNIT capsule 5,000 unit PO DAILY vitamin E 400 UNIT capsule 1,600 unit PO DAILY acetaminophen 500 MG tablet 1,000 mg PO Q8 Qty: 90 0RF prednisone 20 mg tablet 40 mg PO DAILY 3 Days Qty: 6 0RF Primary Care Provider: Meghan Martinez Referrals: Meghan Martinez MD [Primary Care Provider] - Alexandr Saavedra MD [Med Staff - Active Staff] - As soon as possible Print Language: Khmer Disposition Disposition: Home, Self Care
== END 2024-05-31 16:22 | disposition home or self-care (01) ==
PROVIDERS: Emergency Provider Emergency Medicine; PCP Family Medicine; Visit Provider Emergency Medicine
DX: S52.021A Displaced fracture of olecranon process without intraarticular extension of right ulna, initial encounter for closed fracture (principal); S43.401A Unspecified sprain of right shoulder joint, initial encounter; S60.511A Abrasion of right hand, initial encounter; W19.XXXA Unspecified fall, initial encounter; Z96.643 Presence of artificial hip joint, bilateral
CPT/HCPCS: 29125; 73030; 73080; 99282; A4216

== ENCOUNTER 2024-06-11 15:29 | Observation (INO) | payer MEDICARE, SELFPAY ==
--- NOTE | 2024-06-05 13:08 | EKG12_ITS ---
Test Reason : PRE OP Blood Pressure : */* mmHG Vent. Rate : 66 BPM Atrial Rate : 66 BPM P-R Int : 170 ms QRS Dur : 138 ms QT Int : 456 ms P-R-T Axes : 57 -46 126 degrees QTcB Int : 478 ms Normal sinus rhythm Possible Left atrial enlargement Left axis deviation Left bundle branch block Abnormal ECG When compared with ECG of 16-Sep-2021 23:53, QRS axis Shifted left T wave inversion no longer evident in Inferior leads T wave inversion more evident in Lateral leads Confirmed by NICA FRENCH, JUANITA ([id number]), market editor MARLON JUDD ([id number]) on 06/10/2024 7:45:10 AM Referred By: Ozzie Benitez Confirmed By: JUANITA YOUSIF MD
[2024-06-05 14:21] LABS: Absolute Lymphocyte Count 1.91 X10^3/uL (0.83-4.51); Basophil# 0.06 X10^3/uL; Basophil% 0.7 % (0-1); Eosinophils% 1.2 % (0-5); Hemoglobin 12.3 g/dL (12.0-15.0); Lymphocyte # 1.91 X10^3/ul (0.83-4.51); Lymphocyte % 22.1 % (19-41); Mean Corp Hgb Conc 33.2 g/dL (32-36); Mean Corpuscular Hgb 28.9 pg (27.0-32.0); Mean Corpuscular Volume 86.9 fL (81-99); Mean Platelet Vol. 9.3 fl (6.2-12.0); Monocyte# 0.56 X10^3/uL; Monocyte% 6.5 % (0-10); NRBC Flagged by Analyzer 0 % (0-5); Neutrophil % 69.2 % (47-70); Platelet Count 422 K/mm3 (150-450); RBC Distribution Width SD 40.7 fl (35.1-43.9); Red Blood Count 4.26 M/mm3 (4.2-5.4); White Blood Count 8.7 K/mm3 (4.4-11.0)
[2024-06-05 14:39] LABS: Anion Gap 6 (5-15); BUN 28 mg/dL (7-18); BUN/Creat Ratio 45.6 RATIO (10-20); Calcium,Total 9.5 mg/dL (8.5-10.1); Chloride 103 mmol/L (98-107); Creatinine, Serum 0.61 mg/dL (0.55-1.02); EST Glomerular Filtration Rate 99 mL/min (>60); Est Glom Filt Rate - Afr Amer 120 mL/min (>60); Glucose 88 mg/dL (74-106); Potassium 3.9 mmol/L (3.5-5.1); Sodium Level 139 mmol/L (136-145)
--- NOTE | 2024-06-06 11:27 | PAT.ANESEVAL ---
Pre-Assessment Diagnosis/Proposed Procedure Planned Operative Procedure(s): ORIF RIGHT ELBOW Anesthesia History Anesthesia History - rubber ball finisher: Anesthesia History - rubber ball finisher Hx Hospitalization No 06/04/24 15:02 Any Problems With Anesthesia No 06/04/24 15:02 Cholinesterase deficiency No 06/04/24 15:02 You/Your Family Experience No 06/04/24 15:02 fever (hyperthermia) with Relationship Recent Exposure to Contagious No 05/09/17 06:58 Disease Does patient have nerve No 06/04/24 15:02 stimulator Patient instructed to have device shut off --Does patient have Pacemaker or ICD? When Was Last Pacemaker Check QUESTION #4 FULL TEXT: You/Your Family Experience fever (hyperthermia) with Anesthesia Last Oral Intake Last Oral intake: Last Oral Intake NPO since Meds taken in AM with sips of water? Meds patient instructed to take am of surgery PONV PONV - rubber ball finisher: PONV - rubber ball finisher Female Yes 06/04/24 15:02 HX of Motion Sickness Yes 06/04/24 15:02 HX of N/V After Surgery No 06/04/24 15:02 Non-Smoker Yes 06/04/24 15:02 Duration of Surgery greater Yes 06/04/24 15:02 than 60 minutes Number of Risk Factors 4 06/04/24 15:02 PONV Score Severe Risk 06/04/24 15:02 Height & Weight Height & Weight: Anesthesia: Height & Weight Height 5 ft 2 in 05/31/24 13:53 Respiratory Assessment Respiratory Assessment - rubber ball finisher: Respiratory Tract Infection Hx - rubber ball finisher Hx Respiratory Tract Infection No 06/04/24 15:02 STOP Sleep Apnea STOP Sleep Apnea - rubber ball finisher: STOP Sleep Apnea - rubber ball finisher Hx Hypertension No 06/04/24 15:02 Hx Sleep Apnea No 06/04/24 15:02 CPAP BIPAP Do you snore loudly (louder No 06/04/24 15:02 than talking or can be heard Do you often feel tired/ No 06/04/24 15:02 fatigued/ sleepy during daytime? Has anyone observed you stop No 06/04/24 15:02 breathing during sleep? STOP Results Negative 06/04/24 15:02 QUESTION #5 FULL TEXT : Do you snore loudly (louder than talking or can be heard through closed doors)? Tobacco Use History Tobacco Use History - rubber ball finisher: Tobacco Use History - rubber ball finisher Tobacco Use Smoking Status Never smoker 06/04/24 15:02 Hx Tobacco Use No 06/04/24 15:02 Years Smoking Packs Smoked per Day Smoking Cessation Date was within the last 15 years Hx Smoking Cessation Date Hx Smoking Cessation Counseling Hematologic Medial History Hematologic Hx - rubber ball finisher: Hematologic Medical Hx - twister in Hx of Blood Transfusion No 06/04/24 15:02 Hx of Transfusion in last 3 No 06/04/24 15:02 Months Date of Last Transfusion (if within last 3 months) Ever experience any problems No 06/04/24 15:02 with transfusion(s)? Specify any problems Hx of Preganancy in last 3 No 06/04/24 15:02 Months Nurse Filling Out Transfusion DSCHRIBER 06/04/24 15:02 & Questions: Date: 06/04/24 06/04/24 15:02 Time: 15:04 06/04/24 15:02 Patient unable to answer at this time (ie. confused, unrespo /Reproduction History /Reproductive History - rubber ball finisher: /Reproductive Hx- rubber ball finisher Hx Now No 06/04/24 15:02 Gestational Age (in weeks): EDC: Hx Hx Para Hx Section SAB No 06/04/24 15:02 Active Medications Active Medications: Current Medications Generic Name Dose Route Start Last Admin Trade Name Freq PRN Reason Stop Dose Admin Cefazolin Sodium 2 gm/ N/A 20 mls @ 400 mls/hr 06/09/24 17:30 IV 06/09/24 17:32 PREOP ONE [facility] Medical History (Updated 06/04/24 @ 15:15 by Hailey Gross) Cast in place on extremity Wears glasses Post-menopausal Leg cramps Back pain TIA (transient ischemic attack) Non-smoker History of edema History of stress test Arthritis Home Medications ?Medication ?Instructions ?Recorded ?Last Taken ?Type cholecalciferol (vitamin D3) 125 5,000 unit PO DAILY supplement 04/23/17 Unknown History mcg (5,000 unit) capsule cyanocobalamin (vitamin B-12) 1,000 mcg sublingual DAILY 04/23/17 Unknown History 1,000 mcg sublingual tablet supplement multivitamin (Multiple Vitamins 1 ea PO DAILY supplement 04/23/17 Unknown History tablet) vitamin B complex (B 2 ea PO DAILY supplement 04/23/17 Unknown History Complex-Vitamin B12 tablet) vitamin E 268 mg (400 unit) capsule 268 mg PO DAILY supplement 04/23/17 Unknown History BLOOD FLOW SUPPORT 3 cap PO DAILY 06/04/24 Unknown History MYOHEALTH 1 tsp PO DAILY 06/04/24 Unknown History NERVE FORMULA 1 cap PO BID 06/04/24 Unknown History NEUROSHINE 1 cap PO DAILY 06/04/24 Unknown History acetaminophen 500 mg tablet 1,000 mg PO Q8 PRN pain 06/04/24 Unknown History ascorbic acid (vitamin C) 1,000 mg 1,000 mg PO DAILY 06/04/24 Unknown History tablet,extended release (C Complex) ashminnadha root extract 500 mg 500 mg PO QHS 06/04/24 Unknown History capsule calcium carbonate 1,200 mg PO DAILY 06/04/24 Unknown History cranberry concentrate-ascorbic 1 cap PO BID 06/04/24 Unknown History acid 140 mg-100 mg capsule (Cranberry Urinary Comfort) krill oil-hyaluronic 1 cap PO BID 06/04/24 06/04/24 History acid-astaxanthin 353 mg capsule tryptophan 500 mg capsule 500 mg PO QHS 06/04/24 Unknown History turmeric 400 mg capsule 800 mg PO BID 06/04/24 Unknown History vitamin D3 25 mcg (1,000 unit)-vit 1 tab PO DAILY 06/04/24 Unknown History K2 90 mcg disintegrating tablet (D3 Plus K2 Dots) Allergy/AdvReac Type Severity Reaction Status Date / Time adhesive tape (tape) Allergy Intermediate Itching Verified 06/04/24 14:48 Surgical History (Updated 06/04/24 @ 15:11 by Hailey Gross) History of dental surgery Hx of colonoscopy Hx of left cataract extraction History of total right hip replacement Status post endovenous radiofrequency ablation of saphenous vein S/P hemorrhoidectomy History of tonsillectomy and adenoidectomy History of bilateral tubal ligation History of total left hip replacement Social History household members: none Smoking Status: Never smoker alcohol intake: current alcohol intake frequency: a few times a month substance use type: does not use Audit: Pertinent Findings HISTORY of Pertinent Findings History of Pertinent Findings: 84yr old lady status post recent fall and injury to the right hand. Pertinent Findings EKG Perinent findings: LBB with sinus rhythm. 06/05/24 Stress test pertinent findings: None documente. 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 Reasonably functionally active. Recommendation Anesthesia Recommendation Anesthesia recommendation: OPTIMIZED for anesthesia (Recommend block and MAC for procedure.)
--- NOTE | 2024-06-09 11:06 | NURSING ---
upon checking pt in for surgery, she states she ate 3 hard boil eggs and yogurt at [address] Zacarias and Dr. Benitez made aware. Dr. Benitez spoke with pt, will get her rescheduled at later date. surgery cancelled for today.
[2024-06-11] VITALS (18 sets, daily range): BP systolic 131–172; BP diastolic 72–96; PULSE 56–79; RESP 14–16; TEMP 36.3–37.2; O2SAT 92–100; BMI 24.5
[2024-06-11] MEDS: 0.9% Normal Saline (1000mL) 1,000 ML 15 ML IV (12:38)
--- NOTE | 2024-06-11 12:44 | PCM.PRE.AN2 ---
ASA Classification* ASA Classification ASA Classification: 2 Assessment & Plan Anesthesia* Anesthesia Assessment Anesthesia Assessment: Discussed sedation and/or anesthesia options, risks, benefits, and alternatives with patient/parents/legal guardian/POA. Questions invited. The patient/parents/legal guardian/POA seems to understand and agrees to proceed with anesthesia plan. Reviewed the physical assessment, medical history, allergy history and patient home medications list prior to surgery/procedure/anesthetic and documented any changes. Performed airway and anesthesia risk assessments. Anesthesia Type Anesthesia Type: MAC (GA bkup) Anesthesia Focused Assessment* Temperature: 98.5 F Pulse Rate: 78 Blood Pressure: 157/96 Respiratory Rate: 16 Pulse Ox: 99 Airway Assessment Mouth opens: >3 cm Mallampati Score: II Focused Labs Anesthesia Preop lab: CBC WBC 8.7 K/mm3 (4.4-11.0) 06/05/24 13:25 06/05/24 RBC 4.26 M/mm3 (4.2-5.4) 06/05/24 13:25 06/05/24 Hgb 12.3 g/dL (12.0-15.0) 06/05/24 13:25 06/05/24 Hct 37.0 % (37-47) 06/05/24 13:25 06/05/24 Plt Count 422 K/mm3 (150-450) 06/05/24 13:25 06/05/24 CHEMISTRY Potassium 3.9 mmol/L (3.5-5.1) 06/05/24 13:25 06/05/24 Sodium 139 mmol/L (136-145) 06/05/24 13:25 06/05/24 Magnesium 1.5 mg/dL (1.8-2.4) L 10/26/13 14:50 10/26/13 BUN 28 mg/dL (7-18) H 06/05/24 13:25 06/05/24 Creatinine 0.61 mg/dL (0.55-1.02) 06/05/24 13:25 06/05/24 Glucose 88 mg/dL (74-106) 06/05/24 13:25 06/05/24 COAG Pre-Assessment Diagnosis/Proposed Procedure Planned Operative Procedure(s): ORIF RIGHT ELBOW Anesthesia History 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 When Was Last Pacemaker Check QUESTION #4 FULL TEXT: You/Your Family Experience fever (hyperthermia) with Anesthesia Last Oral Intake Last Oral intake: Last Oral Intake NPO since 08:00 06/11/24 12:35 Meds taken in AM with sips of No 06/11/24 12:35 water? Meds patient instructed to take am of surgery PONV PONV - securities and real estate director: PONV - securities and real estate director Female Yes 06/04/24 15:02 HX of Motion Sickness Yes 06/04/24 15:02 HX of N/V After Surgery No 06/04/24 15:02 Non-Smoker Yes 06/04/24 15:02 Duration of Surgery greater Yes 06/04/24 15:02 than 60 minutes Number of Risk Factors 4 06/04/24 15:02 PONV Score Severe Risk 06/04/24 15:02 Height & Weight Height & Weight: Anesthesia: Height & Weight Height 5 ft 2 in 06/11/24 12:35 Weight: 61 kg 06/11/24 12:35 Body Mass Index (BMI) 24.5 06/11/24 12:35 Respiratory Assessment Respiratory Assessment - securities and real estate director: Respiratory Tract Infection Hx - securities and real estate director Hx Respiratory Tract Infection No 06/04/24 15:02 STOP Sleep Apnea STOP Sleep Apnea - securities and real estate director: STOP Sleep Apnea - securities and real estate director Hx Hypertension No 06/04/24 15:02 Hx Sleep Apnea No 06/04/24 15:02 CPAP BIPAP Do you snore loudly (louder No 06/04/24 15:02 than talking or can be heard Do you often feel tired/ No 06/04/24 15:02 fatigued/ sleepy during daytime? Has anyone observed you stop No 06/04/24 15:02 breathing during sleep? STOP Results Negative 06/04/24 15:02 QUESTION #5 FULL TEXT : Do you snore loudly (louder than talking or can be heard through closed doors)? 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 Specify any problems Hx of Preganancy in last 3 No 06/04/24 15:02 Months Nurse Filling Out Transfusion DSCHRIBER 06/04/24 15:02 & Questions: Date: 06/04/24 06/04/24 15:02 Time: 15:04 06/04/24 15:02 Patient unable to answer at this time (ie. confused, unrespo /Reproduction History /Reproductive History - securities and real estate director: /Reproductive Hx- securities and real estate director Hx Now No 06/04/24 15:02 Gestational Age (in weeks): EDC: Hx Hx Para Hx Section SAB No 06/04/24 15:02 Active Medications Active Medications: Current Medications Generic Name Dose Route Start Last Admin Trade Name Freq PRN Reason Stop Dose Admin Cefazolin Sodium 2 gm/ N/A 20 mls @ 400 mls/hr 06/11/24 13:40 IV 06/11/24 13:42 PREOP ONE Sodium Chloride 1,000 mls @ 15 mls/hr 06/11/24 12:15 06/11/24 12:38 IV 06/17/24 01:34 15 mls/hr .Q48H JOE Administration Protocol PFSH Medical History Cast in place on extremity Wears glasses Post-menopausal Leg cramps Back pain TIA (transient ischemic attack) Non-smoker History of edema History of stress test Arthritis Home Medications ?Medication ?Instructions ?Recorded ?Last Taken ?Type cholecalciferol (vitamin D3) 125 5,000 unit PO DAILY supplement 04/23/17 06/10/24 History mcg (5,000 unit) capsule cyanocobalamin (vitamin B-12) 1,000 mcg sublingual DAILY 04/23/17 06/10/24 History 1,000 mcg sublingual tablet supplement multivitamin (Multiple Vitamins 1 ea PO DAILY supplement 04/23/17 06/10/24 History tablet) vitamin B complex (B 2 ea PO DAILY supplement 04/23/17 06/10/24 History Complex-Vitamin B12 tablet) vitamin E 268 mg (400 unit) capsule 268 mg PO DAILY supplement 04/23/17 06/10/24 History BLOOD FLOW SUPPORT 3 cap PO DAILY 06/04/24 06/10/24 History Held on 06/12/24. Instructions: Resume on 07/11/24. MYOHEALTH 1 tsp PO DAILY 06/04/24 06/10/24 History NERVE FORMULA 1 cap PO BID 06/04/24 06/10/24 History NEUROSHINE 1 cap PO DAILY 06/04/24 06/10/24 History acetaminophen 500 mg tablet 1,000 mg PO Q8 PRN pain 06/04/24 06/11/24 History Held on 06/12/24. Instructions: Resume on 07/11/24. ascorbic acid (vitamin C) 1,000 mg 1,000 mg PO DAILY 06/04/24 06/10/24 History tablet,extended release (C Complex) ashwaanadha root extract 500 mg 500 mg PO QHS 06/04/24 06/10/24 History capsule calcium carbonate 1,200 mg PO DAILY 06/04/24 06/10/24 History cranberry concentrate-ascorbic 1 cap PO BID 06/04/24 06/10/24 History acid 140 mg-100 mg capsule (Cranberry Urinary Comfort) krill oil-hyaluronic 1 cap PO BID 06/04/24 06/04/24 History acid-astaxanthin 353 mg capsule tryptophan 500 mg capsule 500 mg PO QHS 06/04/24 06/10/24 History turmeric 400 mg capsule 800 mg PO BID 06/04/24 06/10/24 History vitamin D3 25 mcg (1,000 unit)-vit 1 tab PO DAILY 06/04/24 06/10/24 History K2 90 mcg disintegrating tablet (D3 Plus K2 Dots) aspirin 81 mg chewable tablet 81 mg PO BID 2 weeks #28 tabs 06/12/24 Unknown Rx oxycodone 5 mg tablet 5 mg PO .q4-6 prn PRN Pain Score 06/12/24 Unknown Rx 6-10 7 days #20 tabs Allergy/AdvReac Type Severity Reaction Status Date / Time adhesive tape (tape) Allergy Intermediate Itching Verified 06/11/24 12:27 Surgical History (Updated 06/04/24 @ 15:11 by Hailey Gross) History of dental surgery Hx of colonoscopy Hx of left cataract extraction History of total right hip replacement Status post endovenous radiofrequency ablation of saphenous vein S/P hemorrhoidectomy History of tonsillectomy and adenoidectomy History of bilateral tubal ligation History of total left hip replacement Social History household members: none Smoking Status: Never smoker alcohol intake: current alcohol intake frequency: a few times a month substance use type: does not use Review of Systems (Anesthesia) ROS Narrative System reviewed and no additional complaints, except as documented.
--- NOTE | 2024-06-11 12:45 | RAD_ITS ---
EXAM: Intraoperative fluoroscopy, with the addition fluoroscopic images. CLINICAL HISTORY: Proximal ulnar fracture fixation. COMPARISON: None. TECHNIQUE: Intraoperative fluoroscopy, as well as 3 fluoroscopic images. RAD/O.R. Fluoro for C-Arm IMPRESSION: Intraoperative fluoroscopy was performed for fracture fixation at the proximal right ulna. 3 fluoroscopic images were also obtained. Reading Location: [id number]
--- NOTE | 2024-06-11 12:45 | RAD_ITS ---
EXAM: Intraoperative fluoroscopy, with the addition fluoroscopic images. CLINICAL HISTORY: Proximal ulnar fracture fixation. COMPARISON: None. TECHNIQUE: Intraoperative fluoroscopy, as well as 3 fluoroscopic images. RAD/Elbow 2 Views IMPRESSION: Intraoperative fluoroscopy was performed for fracture fixation at the proximal right ulna. 3 fluoroscopic images were also obtained. Reading Location: [id number]
--- NOTE | 2024-06-11 12:50 | PCM.PRE.AN2 ---
ASA Classification* ASA Classification ASA Classification: 3 Assessment & Plan Anesthesia* Anesthesia Assessment Anesthesia Assessment: Discussed sedation and/or anesthesia options, risks, benefits, and alternatives with patient/parents/legal guardian/POA. Questions invited. The patient/parents/legal guardian/POA seems to understand and agrees to proceed with anesthesia plan. Reviewed the physical assessment, medical history, allergy history and patient home medications list prior to surgery/procedure/anesthetic and documented any changes. Performed airway and anesthesia risk assessments. Anesthesia Type Anesthesia Type: General History Source History Obtained from:: Patient and Chart Anesthesia Focused Assessment* Temperature: 98.5 F Pulse Rate: 78 Blood Pressure: 157/96 Respiratory Rate: 16 Pulse Ox: 99 Oxygen Delivery Method: Room Air Airway Assessment Mouth opens: >3 cm Mallampati Score: II Teeth Condition: Intact Neck Range of motion (ROM): Full ROM Comment: Implant upper and lower Focused Labs Anesthesia Preop lab: CBC WBC 8.7 K/mm3 (4.4-11.0) 06/05/24 13:25 RBC 4.26 M/mm3 (4.2-5.4) 06/05/24 13:25 Hgb 12.3 g/dL (12.0-15.0) 06/05/24 13:25 Hct 37.0 % (37-47) 06/05/24 13:25 Plt Count 422 K/mm3 (150-450) 06/05/24 13:25 CHEMISTRY Potassium 3.9 mmol/L (3.5-5.1) 06/05/24 13:25 Sodium 139 mmol/L (136-145) 06/05/24 13:25 Magnesium 1.5 mg/dL (1.8-2.4) L 10/26/13 14:50 BUN 28 mg/dL (7-18) H 06/05/24 13:25 Creatinine 0.61 mg/dL (0.55-1.02) 06/05/24 13:25 Glucose 88 mg/dL (74-106) 06/05/24 13:25 COAG Pre-Assessment Diagnosis/Proposed Procedure Planned Operative Procedure(s): ORIF RIGHT ELBOW Anesthesia History Anesthesia History - personal care worker: Anesthesia History - personal care worker Hx Hospitalization No 06/04/24 15:02 Any Problems With Anesthesia No 06/04/24 15:02 Cholinesterase deficiency No 06/04/24 15:02 You/Your Family Experience No 06/04/24 15:02 fever (hyperthermia) with Relationship Recent Exposure to Contagious No 06/11/24 12:35 Disease Does patient have nerve No 06/04/24 15:02 stimulator Patient instructed to have device shut off --Does patient have Pacemaker No 06/11/24 12:35 or ICD? When Was Last Pacemaker Check QUESTION #4 FULL TEXT: You/Your Family Experience fever (hyperthermia) with Anesthesia Last Oral Intake Last Oral intake: Last Oral Intake NPO since 08:00 06/11/24 12:35 Meds taken in AM with sips of No 06/11/24 12:35 water? Meds patient instructed to take am of surgery PONV PONV - personal care worker: PONV - personal care worker Female Yes 06/04/24 15:02 HX of Motion Sickness Yes 06/04/24 15:02 HX of N/V After Surgery No 06/04/24 15:02 Non-Smoker Yes 06/04/24 15:02 Duration of Surgery greater Yes 06/04/24 15:02 than 60 minutes Number of Risk Factors 4 06/04/24 15:02 PONV Score Severe Risk 06/04/24 15:02 Height & Weight Height & Weight: Anesthesia: Height & Weight Height 5 ft 2 in 06/11/24 12:35 Weight: 61 kg 06/11/24 12:35 Body Mass Index (BMI) 24.5 06/11/24 12:35 Respiratory Assessment Respiratory Assessment - personal care worker: Respiratory Tract Infection Hx - personal care worker Hx Respiratory Tract Infection No 06/04/24 15:02 STOP Sleep Apnea STOP Sleep Apnea - personal care worker: STOP Sleep Apnea - personal care worker Hx Hypertension No 06/04/24 15:02 Hx Sleep Apnea No 06/04/24 15:02 CPAP BIPAP Do you snore loudly (louder No 06/04/24 15:02 than talking or can be heard Do you often feel tired/ No 06/04/24 15:02 fatigued/ sleepy during daytime? Has anyone observed you stop No 06/04/24 15:02 breathing during sleep? STOP Results Negative 06/04/24 15:02 QUESTION #5 FULL TEXT : Do you snore loudly (louder than talking or can be heard through closed doors)? 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 Specify any problems Hx of Preganancy in last 3 No 06/04/24 15:02 Months Nurse Filling Out Transfusion DSCHRIBER 06/04/24 15:02 & Questions: Date: 06/04/24 06/04/24 15:02 Time: 15:04 06/04/24 15:02 Patient unable to answer at this time (ie. confused, unrespo /Reproduction History /Reproductive History - personal care worker: /Reproductive Hx- personal care worker Hx Now No 06/04/24 15:02 Gestational Age (in weeks): EDC: Hx Hx Para Hx Section SAB No 06/04/24 15:02 Active Medications Active Medications: Current Medications Generic Name Dose Route Start Last Admin Trade Name Freq PRN Reason Stop Dose Admin Cefazolin Sodium 2 gm/ N/A 20 mls @ 400 mls/hr 06/11/24 13:40 IV 06/11/24 13:42 PREOP ONE Sodium Chloride 1,000 mls @ 15 mls/hr 06/11/24 12:15 06/11/24 12:38 IV 06/17/24 01:34 15 mls/hr .Q48H JOE Administration Protocol PFSH Medical History Cast in place on extremity Wears glasses Post-menopausal Leg cramps Back pain TIA (transient ischemic attack) Non-smoker History of edema History of stress test Arthritis Home Medications ?Medication ?Instructions ?Recorded ?Last Taken ?Type cholecalciferol (vitamin D3) 125 5,000 unit PO DAILY supplement 04/23/17 06/10/24 History mcg (5,000 unit) capsule cyanocobalamin (vitamin B-12) 1,000 mcg sublingual DAILY 04/23/17 06/10/24 History 1,000 mcg sublingual tablet supplement multivitamin (Multiple Vitamins 1 ea PO DAILY supplement 04/23/17 06/10/24 History tablet) vitamin B complex (B 2 ea PO DAILY supplement 04/23/17 06/10/24 History Complex-Vitamin B12 tablet) vitamin E 268 mg (400 unit) capsule 268 mg PO DAILY supplement 04/23/17 06/10/24 History BLOOD FLOW SUPPORT 3 cap PO DAILY 06/04/24 06/10/24 History MYOHEALTH 1 tsp PO DAILY 06/04/24 06/10/24 History NERVE FORMULA 1 cap PO BID 06/04/24 06/10/24 History NEUROSHINE 1 cap PO DAILY 06/04/24 06/10/24 History acetaminophen 500 mg tablet 1,000 mg PO Q8 PRN pain 06/04/24 06/11/24 History ascorbic acid (vitamin C) 1,000 mg 1,000 mg PO DAILY 06/04/24 06/10/24 History tablet,extended release (C Complex) ashwagandha root extract 500 mg 500 mg PO QHS 06/04/24 06/10/24 History capsule calcium carbonate 1,200 mg PO DAILY 06/04/24 06/10/24 History cranberry concentrate-ascorbic 1 cap PO BID 06/04/24 06/10/24 History acid 140 mg-100 mg capsule (Cranberry Urinary Comfort) krill oil-hyaluronic 1 cap PO BID 06/04/24 06/04/24 History acid-astaxanthin 353 mg capsule tryptophan 500 mg capsule 500 mg PO QHS 06/04/24 06/10/24 History turmeric 400 mg capsule 800 mg PO BID 06/04/24 06/10/24 History vitamin D3 25 mcg (1,000 unit)-vit 1 tab PO DAILY 06/04/24 06/10/24 History K2 90 mcg disintegrating tablet (D3 Plus K2 Dots) Allergy/AdvReac Type Severity Reaction Status Date / Time adhesive tape (tape) Allergy Intermediate Itching Verified 06/11/24 12:27 Surgical History (Updated 06/04/24 @ 15:11 by Hailey Schriber) History of dental surgery Hx of colonoscopy Hx of left cataract extraction History of total right hip replacement Status post endovenous radiofrequency ablation of saphenous vein S/P hemorrhoidectomy History of tonsillectomy and adenoidectomy History of bilateral tubal ligation History of total left hip replacement Social History household members: none Smoking Status: Never smoker alcohol intake: current alcohol intake frequency: a few times a month substance use type: does not use Review of Systems (Anesthesia) ROS Narrative System reviewed and no additional complaints, except as documented.
[2024-06-11] MEDS: Cefazolin 2 GM in Syringe IV (14:09)
--- NOTE | 2024-06-11 14:36 | PCM.PRE.AN2 ---
ASA Classification* ASA Classification ASA Classification: 3 Assessment & Plan Anesthesia* Anesthesia Assessment Anesthesia Assessment: Discussed sedation and/or anesthesia options, risks, benefits, and alternatives with patient/parents/legal guardian/POA. Questions invited. The patient/parents/legal guardian/POA seems to understand and agrees to proceed with anesthesia plan. Reviewed the physical assessment, medical history, allergy history and patient home medications list prior to surgery/procedure/anesthetic and documented any changes. Performed airway and anesthesia risk assessments. Anesthesia Type Anesthesia Type: Block (06/11/24 1315 - Discussed Supraclavicular Block with patient. Risks/benefits explained. Patient consents to pre-operative block.) Anesthesia Focused Assessment* Temperature: 98.5 F Pulse Rate: 78 Blood Pressure: 157/96 Respiratory Rate: 16 Pulse Ox: 99 Airway Assessment Mouth opens: >3 cm Mallampati Score: II Focused Labs Anesthesia Preop lab: CBC WBC 8.7 K/mm3 (4.4-11.0) 06/05/24 13:25 RBC 4.26 M/mm3 (4.2-5.4) 06/05/24 13:25 Hgb 12.3 g/dL (12.0-15.0) 06/05/24 13:25 Hct 37.0 % (37-47) 06/05/24 13:25 Plt Count 422 K/mm3 (150-450) 06/05/24 13:25 CHEMISTRY Potassium 3.9 mmol/L (3.5-5.1) 06/05/24 13:25 Sodium 139 mmol/L (136-145) 06/05/24 13:25 Magnesium 1.5 mg/dL (1.8-2.4) L 10/26/13 14:50 BUN 28 mg/dL (7-18) H 06/05/24 13:25 Creatinine 0.61 mg/dL (0.55-1.02) 06/05/24 13:25 Glucose 88 mg/dL (74-106) 06/05/24 13:25 COAG Pre-Assessment Diagnosis/Proposed Procedure Planned Operative Procedure(s): ORIF RIGHT ELBOW Anesthesia History Anesthesia History - folder taper operator: Anesthesia History - folder taper operator Hx Hospitalization No 06/04/24 15:02 Any Problems With Anesthesia No 06/04/24 15:02 Cholinesterase deficiency No 06/04/24 15:02 You/Your Family Experience No 06/04/24 15:02 fever (hyperthermia) with Relationship Recent Exposure to Contagious No 06/11/24 12:35 Disease Does patient have nerve No 06/04/24 15:02 stimulator Patient instructed to have device shut off --Does patient have Pacemaker No 06/11/24 12:35 or ICD? When Was Last Pacemaker Check QUESTION #4 FULL TEXT: You/Your Family Experience fever (hyperthermia) with Anesthesia Last Oral Intake Last Oral intake: Last Oral Intake NPO since 08:00 06/11/24 12:35 Meds taken in AM with sips of No 06/11/24 12:35 water? Meds patient instructed to take am of surgery PONV PONV - folder taper operator: PONV - folder taper operator Female Yes 06/04/24 15:02 HX of Motion Sickness Yes 06/04/24 15:02 HX of N/V After Surgery No 06/04/24 15:02 Non-Smoker Yes 06/04/24 15:02 Duration of Surgery greater Yes 06/04/24 15:02 than 60 minutes Number of Risk Factors 4 06/04/24 15:02 PONV Score Severe Risk 06/04/24 15:02 Height & Weight Height & Weight: Anesthesia: Height & Weight Height 5 ft 2 in 06/11/24 12:35 Weight: 61 kg 06/11/24 12:35 Body Mass Index (BMI) 24.5 06/11/24 12:35 Respiratory Assessment Respiratory Assessment - folder taper operator: Respiratory Tract Infection Hx - folder taper operator Hx Respiratory Tract Infection No 06/04/24 15:02 STOP Sleep Apnea STOP Sleep Apnea - folder taper operator: STOP Sleep Apnea - folder taper operator Hx Hypertension No 06/04/24 15:02 Hx Sleep Apnea No 06/04/24 15:02 CPAP BIPAP Do you snore loudly (louder No 06/04/24 15:02 than talking or can be heard Do you often feel tired/ No 06/04/24 15:02 fatigued/ sleepy during daytime? Has anyone observed you stop No 06/04/24 15:02 breathing during sleep? STOP Results Negative 06/04/24 15:02 QUESTION #5 FULL TEXT : Do you snore loudly (louder than talking or can be heard through closed doors)? 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 Specify any problems Hx of Preganancy in last 3 No 06/04/24 15:02 Months Nurse Filling Out Transfusion DSCHRIBER 06/04/24 15:02 & Questions: Date: 06/04/24 06/04/24 15:02 Time: 15:04 06/04/24 15:02 Patient unable to answer at this time (ie. confused, unrespo /Reproduction History /Reproductive History - folder taper operator: /Reproductive Hx- folder taper operator Hx Now No 06/04/24 15:02 Gestational Age (in weeks): EDC: Hx Hx Para Hx Section SAB No 06/04/24 15:02 Active Medications Active Medications: Current Medications Generic Name Dose Route Start Last Admin Trade Name Freq PRN Reason Stop Dose Admin Sodium Chloride 1,000 mls @ 15 mls/hr 06/11/24 12:15 06/11/24 12:38 IV 06/17/24 01:34 15 mls/hr .Q48H JOE Administration Protocol [facility] Medical History Cast in place on extremity Wears glasses Post-menopausal Leg cramps Back pain TIA (transient ischemic attack) Non-smoker History of edema History of stress test Arthritis Home Medications ?Medication ?Instructions ?Recorded ?Last Taken ?Type cholecalciferol (vitamin D3) 125 5,000 unit PO DAILY supplement 04/23/17 06/10/24 History mcg (5,000 unit) capsule cyanocobalamin (vitamin B-12) 1,000 mcg sublingual DAILY 04/23/17 06/10/24 History 1,000 mcg sublingual tablet supplement multivitamin (Multiple Vitamins 1 ea PO DAILY supplement 04/23/17 06/10/24 History tablet) vitamin B complex (B 2 ea PO DAILY supplement 04/23/17 06/10/24 History Complex-Vitamin B12 tablet) vitamin E 268 mg (400 unit) capsule 268 mg PO DAILY supplement 04/23/17 06/10/24 History BLOOD FLOW SUPPORT 3 cap PO DAILY 06/04/24 06/10/24 History MYOHEALTH 1 tsp PO DAILY 06/04/24 06/10/24 History NERVE FORMULA 1 cap PO BID 06/04/24 06/10/24 History NEUROSHINE 1 cap PO DAILY 06/04/24 06/10/24 History acetaminophen 500 mg tablet 1,000 mg PO Q8 PRN pain 06/04/24 06/11/24 History ascorbic acid (vitamin C) 1,000 mg 1,000 mg PO DAILY 06/04/24 06/10/24 History tablet,extended release (C Complex) mattdha root extract 500 mg 500 mg PO QHS 06/04/24 06/10/24 History capsule calcium carbonate 1,200 mg PO DAILY 06/04/24 06/10/24 History cranberry concentrate-ascorbic 1 cap PO BID 06/04/24 06/10/24 History acid 140 mg-100 mg capsule (Cranberry Urinary Comfort) krill oil-hyaluronic 1 cap PO BID 06/04/24 06/04/24 History acid-astaxanthin 353 mg capsule tryptophan 500 mg capsule 500 mg PO QHS 06/04/24 06/10/24 History turmeric 400 mg capsule 800 mg PO BID 06/04/24 06/10/24 History vitamin D3 25 mcg (1,000 unit)-vit 1 tab PO DAILY 06/04/24 06/10/24 History K2 90 mcg disintegrating tablet (D3 Plus K2 Dots) Allergy/AdvReac Type Severity Reaction Status Date / Time adhesive tape (tape) Allergy Intermediate Itching Verified 06/11/24 12:27 Surgical History (Updated 06/04/24 @ 15:11 by Hailey Gross) History of dental surgery Hx of colonoscopy Hx of left cataract extraction History of total right hip replacement Status post endovenous radiofrequency ablation of saphenous vein S/P hemorrhoidectomy History of tonsillectomy and adenoidectomy History of bilateral tubal ligation History of total left hip replacement Social History household members: none Smoking Status: Never smoker alcohol intake: current alcohol intake frequency: a few times a month substance use type: does not use Review of Systems (Anesthesia) ROS Narrative System reviewed and no additional complaints, except as documented.
[2024-06-11] MEDS: Bupiv/Epi 0.25% 30 ML Vial (15:06)
[2024-06-11] MEDS: Sugammadex Sodium 200 MG/2 ML VIAL IV (15:08)
--- NOTE | 2024-06-11 15:34 | OP.PCM_ITS ---
Operative Report (Standard) Operative Information Date of Procedure: 06/11/24 Pre-Operative Diagnosis: Displaced right olecranon fracture Post-Operative Diagnosis: Displaced right olecranon fracture Surgery/Procedure Performed: Open reduction internal fixation right olecranon old testament professor: Yes Diagnostic Cardiac Sonographer: Jono Casanova Tasks completed by assistant executive housekeeper: Opening & closing and Retracting Additional seismic survey assistant?: No Type of Anesthesia: Block,Regional and General RN Documented Start/Stop Times: Operation Date: 06/11/24 13:45 Case Time Into Pre-Op 06/11/24 12:13 Out of Pre-Op 06/11/24 13:55 Anesthesia Start 06/11/24 14:09 Into Room 06/11/24 14:09 Procedure Start 06/11/24 14:41 Procedure End 06/11/24 15:18 Anesthesia End 06/11/24 15:23 Out of Room 06/11/24 15:23 Into Recovery 06/11/24 15:26 Procedure Start Time: 14:41 Procedure Stop Time: 15:18 Select all DRAINS/GRAFTS/IMPLANTS that apply: Implanted device Implanted device details: Synthes VA-LCP proximal olecranon plate 2.7/3.5 right 2 hole with combination of cortical and locking screws. Estimated Blood Loss: 25 cc Specimen collected: No Description of surgery: Patient was identified in the preoperative holding area by name, medical record number, and date of . The operative extremity was marked. All questions were answered to the patient satisfaction. At time of her procedure, patient brought the op suite positioned supine resting operative table. General anesthesia was induced and ETT placed. Patient was then positioned in lateral decubitus position. An axillary roll was placed. All bony prominences were well-padded. She was held in lateral decubitus position with a beanbag. Beanbag was deflated. The operative extremity was wilson amaris over radiolucent post A well-padded pneumatic tourniquet was applied to the right upper arm. We prepped and draped the right upper extremity in normal, sterile orthopedic fashion. We performed timeout confirming the side, site, operation be performed. No concerns voiced elected proceed with surgery. Due to ceftriaxone allergy, patient was administered 2 g Ancef prior to incision by anesthesia staff IV. I then exsanguinated the right upper extremity Esmarch bandage. Tourniquet inflated to 250 mmHg which made up for approximately 30 minutes. Esmarch was removed. A standard longitudinal approach was then utilized to the proximal ulna curving slightly over the olecranon process. Full-thickness skin flaps were developed down to level of the fascia. Fracture was encountered. Fascia was then opened proximal and distal to the fracture site. Fracture hematoma was debrided. Fracture was irrigated. I then drilled along the ulnar cortex distal to the fracture and placed a olecranon fracture reduction clamp with excellent compression and reapproximation and anatomy. An orthogonal K wire was then placed for provisional fixation. Orthogonal fluoroscopy confirmed anatomic redu ction. I then selected a 2 hole olecranon plate. The triceps tendon was split in line with the ulnar crest to allow the plate to contact bone more effectively. Plate was then compressed down to bone with BB tacks. Cortical screws were placed in the proximal and distal segments. The proximal cluster was then filled with locking screws, unicortical. I then placed a compression eccentric 3.5 mi llimeter screw in the oblong hole of the plate distally and achieved additional compression across the fracture site after the K wire was removed as well as the clamp. An additional 2.7 mm bicortical shaft screw was placed to complete our fixation. Final fluoroscopic images demonstrated anatomically reduced olecranon and appropriately sized and positioned hardware. Stable fracture following fix ation. Tourniquet was deflated. Wound was copiously irrigated with normal saline solution. I anesthetized the wound with 10 cc total 1% lidocaine with epinephrine: Quarter percent bupivacaine plain in a 50: 50 mixture. Triceps tendon was then sewn into the plate for additional fixation. The fascia was closed watertight with interrupted [id number] 0 Vicryl suture. Dermis was reapproximated buried 2-0 Vicryl suture. Skin was finally reapproximated surgical neli. A sterile compression dressing was applied. Xeroform was applied to the superficial abrasion. Soft dressing was applied. Patient was placed in a simple sling. She was repositioned supine and safely extubated the operative suite. She was transferred to PACU in stable condition. Post Operative Plan: Weightbearing: Nonweightbearing operative extremity. Gentle range of motion to the right elbow. Antibiotics: 24 hrs Ancef ppx DVT Prophylaxis: Early ambulation, ASA 81 mg BID Dangelo: None Dressing: Maintain surgical dressing until postoperative day #3 then okay to shower and remove. X-Rays: None Pain Medication: Oxycodone and tylenol Follow-up: 2 weeks in the office with x-rays upon arrival. Plan to remove sta ples at that time. Surgical Findings: Stable olecranon following final fixation Complications Complications: No Admit VTE Documentation VTE Present on Admission: No VTE Mechan Device Prophylaxis: SCD's VTE Pharm Prophylaxis ordered?: Yes
--- NOTE | 2024-06-11 15:34 | PCM.POST.ANE ---
Anesthesia: Postop Eval I Current Vital Signs Temperature: 98.1 F Pulse Rate: 61 Blood Pressure: 159/81 Respiratory Rate: 16 Pulse Ox: 100 Assessment Airway patent: Yes Spontaneous unlabored respirations: Yes nausea: No Vomiting: No Anesthesia Complication: No Fluid Hydration Crystalloid volume administer (ml): 1,000 Total IV fluid infused: 1,000 Progress Note Anesthesia document: Postop Eval 1 completed: Yes
--- NOTE | 2024-06-11 15:42 | EKG12_ITS ---
Test Reason : ekg changes in OR Blood Pressure : */* mmHG Vent. Rate : 57 BPM Atrial Rate : 57 BPM P-R Int : 172 ms QRS Dur : 156 ms QT Int : 538 ms P-R-T Axes : 59 -63 118 degrees QTcB Int : 523 ms Sinus bradycardia Possible Left atrial enlargement Left axis deviation Left bundle branch block Abnormal ECG When compared with ECG of 05-Jun-2024 13:13, No significant change was found Confirmed by NICA FRENCH, JUANITA ([id number]), supervising film or videotape editor MARLNO JUDD ([id number]) on 06/12/2024 2:45:52 PM Referred By: Ozzie Benitez Confirmed By: JUANITA YOUSIF MD
--- NOTE | 2024-06-11 16:18 | POSTOPAN2_ITS ---
Anesthesia Postop Eval I Sum Postop Eval Completion status Anesthesia document: Postop Eval 1 completed: Yes Anesthesia Postop Eval I Summary Anesthesia Postop Eval I Summary: Anesthesia Postop Eval I: Assessment Summary Airway patent Yes 06/11/24 15:37 CORRECTIONAL OFFICER CHIEF.TNES Spontaneous unlabored Yes 06/11/24 15:37 CORRECTIONAL OFFICER CHIEF.TNES respirations Mental status nausea No 06/11/24 15:37 CORRECTIONAL OFFICER CHIEF.TNES Vomiting No 06/11/24 15:37 CORRECTIONAL OFFICER CHIEF.TNES Anesthesia Postop Eval I: Fluid Summary Crystalloid volume administer 1,000 06/11/24 15:37 CORRECTIONAL OFFICER CHIEF.TNES (ml) Colloids volume administered ( ml) Blood Product volume administered (ml) Total IV fluid infused 1,000 06/11/24 15:37 CORRECTIONAL OFFICER CHIEF.TNES Anesthesia Postop Eval I: Summary Notes Anesthesia Complication No 06/11/24 15:37 CORRECTIONAL OFFICER CHIEF.TNES Anesthesia Complication Comment: Post-operative progress note Anesthesia: Postop Eval II Evaluation Mental status: Awake Pain Level: 0 nausea: No Vomiting: No Progress Note Post-operative progress note: No chest pain. 12 lead EKG back to normal from noted intraop ST depression. Hemodynamically stable. Complications Anesthesia Complication: No
--- NOTE | 2024-06-11 16:18 | PCM.POSTANE2 ---
Anesthesia Postop Eval I Sum Postop Eval Completion status Anesthesia document: Postop Eval 1 completed: Yes Anesthesia Postop Eval I Summary Anesthesia Postop Eval I Summary: Anesthesia Postop Eval I: Assessment Summary Airway patent Yes 06/11/24 15:37 RUBBER GASKET INSPECTOR [email or web address].[email or web address] Spontaneous unlabored Yes 06/11/24 15:37 RUBBER GASKET INSPECTOR TRIMMER.TNES respirations Mental status nausea No 06/11/24 15:37 RUBBER GASKET INSPECTOR TRIMMER.TNES Vomiting No 06/11/24 15:37 RUBBER GASKET INSPECTOR TRIMMER.TNES Anesthesia Postop Eval I: Fluid Summary Crystalloid volume administer 1,000 06/11/24 15:37 RUBBER GASKET INSPECTOR TRIMMER.TNES (ml) Colloids volume administered ( ml) Blood Product volume administered (ml) Total IV fluid infused 1,000 06/11/24 15:37 RUBBER GASKET INSPECTOR TRIMMER.TNES Anesthesia Postop Eval I: Summary Notes Anesthesia Complication No 06/11/24 15:37 RUBBER GASKET INSPECTOR TRIMMER.TNES Anesthesia Complication Comment: Post-operative progress note Anesthesia: Postop Eval II Evaluation Mental status: Awake Pain Level: 0 nausea: No Vomiting: No Progress Note Post-operative progress note: No chest pain. 12 lead EKG back to normal from noted intraop ST depression. Hemodynamically stable. Complications Anesthesia Complication: No
[2024-06-11 17:11] LABS: Troponin-I HS 12 pg/mL (3.0-54.0)
--- NOTE | 2024-06-11 18:11 | PCM.CONS.GEN ---
Assessment & Plan Assessment/Plan (1) Fracture of right olecranon process: (2) Abnormal EKG: PLAN: Plan Patient is an 84-year-old female who presented [facility] on 06/11/2024 for planned ORIF of fractured right olecranon. Medicine consulted postoperatively for medical management. 1. Displaced right olecranon fracture ? Orthopedic surgery primary. S/p ORIF of right olecranon with Dr. Benitez on 06/11. Tolerated procedure well. Pain management and other postop recommendations per orthopedics. 2. Concern for abnormal EKG findings ? EKG done intraoperatively and staff concern for new ST depressions. Troponins negative x 2. Patient with no chest pain postoperatively and hemodynamically stable. Reviewed this EKG and last EKG from 2021 and findings appear consistent with left bundle branch block and ST changes associated with this. Will repeat EKG to confirm that it remains stable. 3. Elevated BP readings ? Blood pressure consistently in the 140s to 150s systolic postoperatively. Patient not on any home blood pressure medications. Patient is on several vitamins and natural supplements and I suspect she may not be interested in taking antihypertensive medications. Okay to monitor for now. Total clinical time spent by myself addressing the patient's medical issues, reviewing all the data, and collaborating with patient's care team: 35 minutes. HPI Consult Data Date of Consult: 06/11/24 HPI Narrative Reason for Consultation: Postoperative medical management HPI Narrative: Danny ORO, is a 84 F who presented to [facility] on 06/11/2024 for planned orthopedic procedure. Medicine consulted postoperatively for medical management. Patient had ORIF of her right olecranon done with Dr. Benitez today. Procedure went fine but there was concern for possible ST depressions on EKG checked intraoperatively. Patient remained hemodynamically stable during the procedure. Postoperatively she felt mildly nauseous but otherwise was stable on transfer to [facility]. I saw the patient at bedside around 6 PM this evening. Patient was mildly fatigued appearing but otherwise sitting up comfortably in bed, conversing normally, in no acute distress. She denied any chest pain or discomfort. She did report mild nausea but stated this was improving. Denies shortness of breath. She was breathing comfortably on room air at rest. No other acute concerns at this time. [facility] Medical History Cast in place on extremity Wears glasses Post-menopausal Leg cramps Back pain TIA (transient ischemic attack) Non-smoker History of edema History of stress test Arthritis Home Medications ?Medication ?Instructions ?Recorded ?Last Taken ?Type cholecalciferol (vitamin D3) 125 5,000 unit PO DAILY supplement 04/23/17 06/10/24 History mcg (5,000 unit) capsule cyanocobalamin (vitamin B-12) 1,000 mcg sublingual DAILY 04/23/17 06/10/24 History 1,000 mcg sublingual tablet supplement multivitamin (Multiple Vitamins 1 ea PO DAILY supplement 04/23/17 06/10/24 History tablet) vitamin B complex (B 2 ea PO DAILY supplement 04/23/17 06/10/24 History Complex-Vitamin B12 tablet) vitamin E 268 mg (400 unit) capsule 268 mg PO DAILY supplement 04/23/17 06/10/24 History BLOOD FLOW SUPPORT 3 cap PO DAILY 06/04/24 06/10/24 History MYOHEALTH 1 tsp PO DAILY 06/04/24 06/10/24 History NERVE FORMULA 1 cap PO BID 06/04/24 06/10/24 History NEUROSHINE 1 cap PO DAILY 06/04/24 06/10/24 History acetaminophen 500 mg tablet 1,000 mg PO Q8 PRN pain 06/04/24 06/11/24 History ascorbic acid (vitamin C) 1,000 mg 1,000 mg PO DAILY 06/04/24 06/10/24 History tablet,extended release (C Complex) ashwagandha root extract 500 mg 500 mg PO QHS 06/04/24 06/10/24 History capsule calcium carbonate 1,200 mg PO DAILY 06/04/24 06/10/24 History cranberry concentrate-ascorbic 1 cap PO BID 06/04/24 06/10/24 History acid 140 mg-100 mg capsule (Cranberry Urinary Comfort) krill oil-hyaluronic 1 cap PO BID 06/04/24 06/04/24 History acid-astaxanthin 353 mg capsule tryptophan 500 mg capsule 500 mg PO QHS 06/04/24 06/10/24 History turmeric 400 mg capsule 800 mg PO BID 06/04/24 06/10/24 History vitamin D3 25 mcg (1,000 unit)-vit 1 tab PO DAILY 06/04/24 06/10/24 History K2 90 mcg disintegrating tablet (D3 Plus K2 Dots) Allergy/AdvReac Type Severity Reaction Status Date / Time adhesive tape (tape) Allergy Intermediate Itching Verified 06/11/24 12:27 Surgical History (Updated 06/04/24 @ 15:11 by Hailey Gross) History of dental surgery Hx of colonoscopy Hx of left cataract extraction History of total right hip replacement Status post endovenous radiofrequency ablation of saphenous vein S/P hemorrhoidectomy History of tonsillectomy and adenoidectomy History of bilateral tubal ligation History of total left hip replacement Social History household members: none Smoking Status: Never smoker alcohol intake: current alcohol intake frequency: a few times a month substance use type: does not use ROS Constitutional Constitutional: Reports fatigue; Denies chills, fever(s) or weakness Eyes Eyes: Denies change in vision Cardiovascular Cardiovascular: Denies chest pain or palpitations Respiratory/Chest Respiratory/Chest: Denies shortness of breath at rest Gastrointestinal Gastrointestinal: Reports nausea; Denies abdominal pain, constipation, diarrhea or vomiting Neurologic Neurologic: Denies dizziness or headache(s) Physical Exam Const alert, oriented x3, no apparent distress and average body habitus Constitutional Narrative: Elderly female, mildly fatigued appearing, otherwise sitting up comfortably in bed, conversing normally, in no acute distress. General Appearance: cooperative and comfortable HEENT normocephalic, head/scalp atraumatic, hearing grossly normal bilaterally and nasal mucous membranes and turbinates normal Eyes PERRL, EOMs intact bilaterally and conjunctivae normal Neck full ROM Chest inspection of chest normal Resp normal respiratory effort, normal air movement, no use of accessory muscles and clear to auscultation bilaterally Cardio regular rate, regular rhythm, no murmurs and peripheral pulses 2+ throughout GI normal to inspection, nondistended, normoactive bowel sounds, soft to palpation, non-tender and non-distended Back/Spine normal ROM Extremity Extremity Narrative: Right arm in sling, stable. Skin no rashes or lesions noted Neuro moves all extremities and no focal motor deficits Speech: speech normal Motor Exam: strength 5/5 throughout Psych mental status grossly normal Lab / Micro Data 06/05/24 13:25 01/23/25 13:25 Labs: Laboratory Results - last 24 hr 06/11/24 15:42: Troponin I High Sens 12 Imaging Radiology Impression C-Arm Fluoroscopy 06/11/24 12:45 IMPRESSION: Intraoperative fluoroscopy was performed for fracture fixation at the proximal right ulna. 3 fluoroscopic images were also obtained. Reading Location: [facility] Elbow X-Ray 06/11/24 12:45 IMPRESSION: Intraoperative fluoroscopy was performed for fracture fixation at the proximal right ulna. 3 fluoroscopic images were also obtained. Reading Location: [facility] Charges/Coding Visit Charges Inpatient E&M: 98162 Subs Hosp L2
[2024-06-11 19:19] LABS: Troponin-I HS 11 pg/mL (3.0-54.0)
[2024-06-11] MEDS: Cefazolin 1 GM/50 ML BAG IV (20:54)
[2024-06-11] MEDS: Acetaminophen 500 MG Tablet 1000 MG PO (22:16)
[2024-06-11] MEDS: oxyCODONE 5 MG Tablet PO (22:16)
[2024-06-12 02:24] VITALS: BP 112/61; PULSE 74; RESP 14; TEMP 36.9; O2SAT 98
[2024-06-12] MEDS: Ibuprofen 200 MG Tablet PO (04:08)
[2024-06-12] MEDS: Ondansetron 4 MG/2 ML Vial IV (04:40)
[2024-06-12] MEDS: 0.9% Saline Lock 10 ML Syringe IV (04:40)
[2024-06-12] MEDS: Cefazolin 1 GM/50 ML BAG IV (05:00)
[2024-06-12 08:00] VITALS: BP 146/85; PULSE 67; RESP 16; TEMP 37; O2SAT 98
[2024-06-12] MEDS: Calcium Carbonate 500 MG Tablet 1000 MG PO (08:57)
[2024-06-12] MEDS: Aspirin 81 MG TAB.CHEW PO (09:04)
[2024-06-12 09:30] VITALS: RESP 18
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
--- NOTE | 2024-06-12 11:12 | CASEMGMT ---
Discharge Planning A list of?HH providers including quality and resource use data and consistent with the patient's preferred geographic region, medical needs, and insurance network was created in [facility]Port Guide.? This list was provided to the RN DAQUAN. Marine Hathaway, Discharge Planning Asst.
--- NOTE | 2024-06-12 11:47 | PCM.DC.SUM ---
Providers Date of Discharge: 06/12/24 Primary Care Physician: Dr. Meghan Martinez MD Consultations 06/11/24 16:50 Consult: Hospitalist Routine Consulting Provider: Marvel Cuenca Reason for Consult: Post op medical management, s/p R olecranon ORIF EMERGENT Consult: No MD Notified: Yes Date Notified: 06/11/24 Time Notified: 17:55 Method of Notification: Text Reason For Visit: OPEN REDUCTION INTERNAL FIXATION RIGHT OLECRANON Diagnosis Discharge Diagnosis (1) Fracture of right olecranon process: Status: Acute Code(s): S52.021A - Displaced fracture of olecranon process without intraarticular extension of right ulna, initial encounter for closed fracture Plan: 1. Will continue PT today. Nonweightbearing to right upper extremity. Okay for range of motion 2. plan for discharge this afternoon following PT. Home health is being arranged. 3. Patient will follow up for post op appointment in 2 weeks as previously scheduled 4. Patient has outpatient PT likely with home health. 5. WBC 8.7 acute reactive leukocytosis: secondary to pre operative decadron. no acute systemic signs of infection. will monitor, and likely self resolve. 6. H/H 12.3/37.0: post operavtive anemia secondary to acute blood loss intraoperatively. Patient is asymptomatic at this time. No intraoperative complications. will continue to monitor. no acute interventions. 7. DVT prophylaxis : Aspirin 81 mg twice daily times at least 2 weeks. 8. Pain control: patient instructed to take tylenol 500mg 2 tablets TID. and oxycodone 1-2 tablets every 4-6 hours only as needed for pain control. 9. Patient found to be hypertensive however this is chronic. Will discharge with plan to follow-up with PCP regarding beginning medication for management for this. It is stable at this point time and cleared by medicine. Intraoperatively there was concern for ST changes for which EKG, serial troponins and medicine consult was obtained. EKGs postoperatively did appear stable to preop. Troponins were 12 and 11. Patient appears to be cleared to discharge home with follow-up with PCP and with home health. 10. ok to remove post op dressing 3 days after surgery. (2) Abnormal EKG: Status: Acute Code(s): R94.31 - Abnormal electrocardiogram [ECG] [EKG] Medications at Discharge Home Medications cholecalciferol (vitamin D3) 125 mcg (5,000 unit) capsule 5,000 unit PO DAILY supplement 04/23/17 cyanocobalamin (vitamin B-12) 1,000 mcg sublingual tablet 1,000 mcg sublingual DAILY supplement 04/23/17 multivitamin (Multiple Vitamins tablet) 1 ea PO DAILY supplement 04/23/17 vitamin B complex (B Complex-Vitamin B12 tablet) 2 ea PO DAILY supplement 04/23/17 vitamin E 268 mg (400 unit) capsule 268 mg PO DAILY supplement 04/23/17 BLOOD FLOW SUPPORT 3 cap PO DAILY 06/04/24 Held on 06/12/24. Instructions: Resume on 07/11/24. MYOHEALTH 1 tsp PO DAILY 06/04/24 NERVE FORMULA 1 cap PO BID 06/04/24 NEUROSHINE 1 cap PO DAILY 06/04/24 acetaminophen 500 mg tablet 1,000 mg PO Q8 PRN pain 06/04/24 Held on 06/12/24. Instructions: Resume on 07/11/24. ascorbic acid (vitamin C) 1,000 mg tablet,extended release (C Complex) 1,000 mg PO DAILY 06/04/24 ashwagandha root extract 500 mg capsule 500 mg PO QHS 06/04/24 calcium carbonate 1,200 mg PO DAILY 06/04/24 cranberry concentrate-ascorbic acid 140 mg-100 mg capsule (Cranberry Urinary Comfort) 1 cap PO BID 06/04/24 krill oil-hyaluronic acid-astaxanthin 353 mg capsule 1 cap PO BID 06/04/24 tryptophan 500 mg capsule 500 mg PO QHS 06/04/24 turmeric 400 mg capsule 800 mg PO BID 06/04/24 vitamin D3 25 mcg (1,000 unit)-vit K2 90 mcg disintegrating tablet (D3 Plus K2 Dots) 1 tab PO DAILY 06/04/24 aspirin 81 mg chewable tablet 81 mg PO BID 2 weeks #28 tabs 06/12/24 oxycodone 5 mg tablet 5 mg PO .q4-6 prn PRN Pain Score 6-10 7 days #20 tabs 06/12/24 Hospital Course Operations - (Open reduction internal fixation right olecranon fracture.) Summary of Care Provided Hospital Course: Patient is an 84-year-old female s/p open reduction internal fixation right olecranon fracture with Dr. Benitez 06/11/2024. Patient resting comfortably in bed. Rates pain 3/ 10. Patient is nonweightbearing to right upper extremity. States taking Tylenol and oxycodone as needed and ice help to relieve pain. Patient has been up with therapy. Afebrile, no chest pain, shortness of breath, negative calf pain/ erythema, and no other signs of DVT. Intraoperatively patient did have concerns with ST changes a postoperative twelve-lead EKG was obtained as well as serial troponins. Twelve-lead EKG was compared with EKG prior to surgery which was stable without acute changes. Troponins were 12 and 11. Medicine was consulted as patient did transfer to [facility] for observation. Medicine is clearing from EKG standpoint and recommending hypertension recommendations per primary care upon discharge. Physical Exam Narrative Patient resting comfortably in bed No signs of acute distress Satting well on room air Limb is warm to touch, Sensation intact throughout entire right upper extremity, Radial pulses bounding. able to wiggle all fingers. intact to radial, median, ulnar nerve distribution. Dressing clear dry intact Calf nontender to palpation, no erythema, no edema. Negative Homans Weight / BMI Weight Weight: 61 kg Body Mass Index (BMI) 24.5 ABG / Lab / Microbiology Data 06/05/24 13:25 06/05/24 13:25 Laboratory: Laboratory Results - last 24 hr 06/11/24 15:42: Troponin I High Sens 12 06/11/24 18:52: Troponin I High Sens 11 Radiography Diagnostic Testing: Radiology Impression C-Arm Fluoroscopy 06/11/24 12:45 IMPRESSION: Intraoperative fluoroscopy was performed for fracture fixation at the proximal right ulna. 3 fluoroscopic images were also obtained. Reading Location: [id number] Elbow X-Ray 06/11/24 12:45 IMPRESSION: Intraoperative fluoroscopy was performed for fracture fixation at the proximal right ulna. 3 fluoroscopic images were also obtained. Reading Location: [id number] D/C Instructions Discharge Diet: No restrictions Discharge Activity: Return to Normal Activity (nonweightbearing to right upper extremity. ok for gentle ROM) and May Shower Weight Bearing Status: No weight bearing (to right upper extremity ) Call your doctor if your incision/area has: Continuous Slow Oozing, Sudden Increased Bleeding, Increased Pain/ Swelling, Increased Redness, Foul Smelling Discharge and Swelling at the incision site Call your doctor if you observe: Fever of 101 or Higher, Coldness, Increased Pain, Numbness or Tingling, Inability to have a bowel movement, Shortness of breath, Dizziness, Chest pain, Calf discomfort and Uncontrolled pain Remove Dressing in: 3 days Cleanse incision/area with: Soap & Water and Keep Dressing Clean & Dry DC O2, CPAP, BIPAP Needs Home O2 Discharge instructions: No DC home with Oxygen: No Meaningful Use Info Meaningful Use Meaningful Use Diagnoses (Choose all that apply): None applicable Ischemic Stroke Statin Dosing Therapy Reference: STATIN DOSE THERAPY REFERENCE: * Patients > 75 years receive moderate or high dose statin therapy. * Patients 75 years or YOUNGER should receive HIGH intensity statin dose unless contraindicated. You will be required to document reason for non-treatment if statin daily dose does not meet guidelines. HIGH DOSE STATIN THERAPY DAILY Atorvastatin > than or = to 40 mg Rosuvastatin > than or = to 20 mg Amlodipine + Atorvastatin > than or = to 2.5/40 mg Ezetimibe + Simvastatin 10/80 mg Simvastatin 80mg Discharge Plan Admission Attending Provider: Ozzie Benitez Primary Care Provider: Meghan Martinez Consulting Providers: Marvel Cuenca; Floresita Beavers Instructions Print Language: Setswana Discharge Orders/Prescriptions Prescriptions: New aspirin 81 mg Tablet,Chewable 81 mg PO BID 14 Days Qty: 28 0RF oxycodone 5 mg Tablet 5 mg PO .q4-6 prn PRN (Reason: Pain Score 6-10) 7 Days Qty: 20 0RF Continued multivitamin [Multiple Vitamins] 1 EACH tablet 1 ea PO DAILY vitamin B complex [B Complex-Vitamin B12] 1 EACH tablet 2 ea PO DAILY cyanocobalamin (vitamin B-12) 1,000 MCG tablet, sublingual 1,000 mcg sublingual DAILY cholecalciferol (vitamin D3) 5,000 UNIT capsule 5,000 unit PO DAILY vitamin E 400 UNIT capsule 268 mg PO DAILY turmeric 400 mg capsule 800 mg PO BID krill [id number]-crhlmavdt 353 mg capsule 1 cap PO BID D3 Plus K2 Dots 25 mcg (1,000 unit)-90 mcg tablet,disintegrating 1 tab PO DAILY NEUROSHINE 1 cap PO DAILY Cranberry Urinary Comfort 140-100 mg capsule 1 cap PO BID NERVE FORMULA 1 cap PO BID tryptophan 500 mg capsule 500 mg PO QHS Rx Instructions: administer approximately 20 minutes before bedtime ashwagandha root extract 500 mg capsule 500 mg PO QHS C Complex 1,000 mg tablet extended release 1,000 mg PO DAILY MYOHEALTH 1 tsp PO DAILY Held BLOOD FLOW SUPPORT 3 cap PO DAILY Hold Instructions: Resume on 07/11/24. acetaminophen 500 MG tablet 1,000 mg PO Q8 PRN (Reason: pain) Hold Instructions: Resume on 07/11/24. No Action calcium carbonate 300 mg (750 mg) tablet,chewable 1,200 mg PO DAILY Referrals / Follow Up: Meghan Martinez MD [Primary Care Provider] - Disposition Disposition (needs filled in before D/C Order can be placed): Home Health Service
--- NOTE | 2024-06-12 12:38 | CASEMGMT ---
Addendum entered by Annie Duarte 06/12/24 13:19: Pt selected [facility], [facility], and reports that [facility] has a new [facility] and she would be interested in them as well. RNDAQUAN updated. NAIN Herndon Addendum entered by Annie Duarte 06/12/24 13:09: Pt would like to proceed with HHC rather than SNF. NAIN Herndon Original Note: Social Work- SW was informed by RNDAQUAN that pt would like SNF referral. SW met with pt to explain that pt would need to remain in the hospital until referrals has been accepted and insurance has offered authorization. Pt had previously noted concerns about finances due to being in observation. SW explained the referral process and encouraged pt to consider that pt may be declined by insurance and to consider what the plan may be if that occurred. Pt reports that she would like to talk to her insurance licensing supervisor prior to making a decision on if she wants to remain hospitalized through the SNF process. SW remains available to follow. NAIN Herndon
--- NOTE | 2024-06-12 12:45 | CASEMGMT ---
Addendum entered by Shi Vee 06/12/24 14:16: Pt accepted by [facility]. OCTAVIA BUTT into pt room, she is aware of this information. Pt denies any further homegoing needs at this time. Addendum entered by Shi Vee 06/12/24 14:10: 1350- SW notified of pt preferences. Referral sent to [facility] via [facility] at this time. Nagi from [facility] states the hemiwalker was delivered and pt was agreeable to cost of $16.31. Original Note: OCTAVIA BUTT into pt room, pt states she would like to go home with [facility]. Pt has the list and will review for her top 3 preferences. Pt states she would like to know the cornelius of the hemiwalker prior to it being delivered. Referral sent to [facility] via [email or web address]. TC to [facility] to check cost of pt rx, cost is approx $11 for pain medication. Pt is aware of this. OCTAVIA BUTT to follow for [facility] preferences.
--- NOTE | 2024-06-12 13:44 | PCM.PN.HOSP ---
Reason for Visit Reason for Visit: Right elbow fracture Subjective Subjective No issues overnight. Patient is worried about going home as she states she is a hoarder and she does not have a good relationship with her son right now as he is dealing with the of his father that happened in the last couple months and she is also worried about taking care of her dog which is currently being taken care of by somebody else. She is ambulating quite well with physical therapy at this point we did discuss I do not think she will qualify to go anywhere for rehab. Objective Data Objective Data Vital Signs: Vital Signs Temp Pulse Resp BP Pulse Ox O2 Del Method O2 Flow Rate 98.6 F 67 18 146/85 H 98 Room Air 2 06/12/24 08:00 06/12/24 08:00 06/12/24 09:30 06/12/24 08:00 06/12/24 08:00 06/12/24 08:00 06/11/24 16:01 Oxygen Flow Rate (L/min) 2 Oxygen Delivery Method Room Air Weight: 61 kg Body Mass Index (BMI) 24.5 Intake & Output: Intake and Output for Last 24 Hours 06/10/24 06/11/24 06/12/24 23:59 23:59 23:59 Intake Total 70 / 70 50 / 50 Balance 70 / 70 50 / 50 Lab / Micro Data 06/05/24 13:25 06/05/24 13:25 Labs: Laboratory Results - last 24 hr 06/11/24 15:42: Troponin I High Sens 12 06/11/24 18:52: Troponin I High Sens 11 Radiography Diagnostic Testing: Radiology Impression C-Arm Fluoroscopy 06/11/24 12:45 IMPRESSION: Intraoperative fluoroscopy was performed for fracture fixation at the proximal right ulna. 3 fluoroscopic images were also obtained. Reading Location: [id number] Elbow X-Ray 06/11/24 12:45 IMPRESSION: Intraoperative fluoroscopy was performed for fracture fixation at the proximal right ulna. 3 fluoroscopic images were also obtained. Reading Location: [facility] Physical Exam Const alert, oriented x3, no apparent distress, average body habitus and well nourished Constitutional Narrative: Very pleasant, elderly, white female, walking around the halls with physical therapy, appears younger than stated age, interacts appropriately, mildly anxious HEENT head/scalp atraumatic and moist oral mucous membranes Head and Scalp: normocephalic Resp normal respiratory effort, no retractions, no use of accessory muscles and clear to auscultation bilaterally Auscultation: Negative for rales, rhonchi or wheezes Cardio regular rate, regular rhythm, S1 normal heart sound, S2 normal heart sound, no murmurs, no rub, no gallops and no clicks GI normal to inspection, nondistended, normoactive bowel sounds, soft to palpation and non-tender Extremity no clubbing, cyanosis or edema Extremity Narrative: Right upper extremity in sling with ecchymosis noted in her hand, left upper extremity within normal limits, ambulating the halls with standby assist and quad cane Neuro oriented x3 and no focal motor deficits Speech: speech normal Psych Psych Narrative: Mildly anxious but pleasant and interacts appropriately Assessment & Plan Assessment/Plan (1) Abnormal EKG: (2) Fracture of right olecranon process: PLAN: Plan Displaced right olecranon fracture -Postop day 1 ORIF of the right olecranon with Dr. Benitez -Has done well with procedures -Pain management per primary service -Continue sling per primary service Abnormal EKG -Intraoperative EKG concerning for new ST depressions -Troponins unremarkable x 2 and patient without any symptoms -Patient with chronic left bundle branch block -No concerns or further workup would be recommended Elevated blood pressure -Systolic blood pressures are still ranging between 130 and 150 -Would recommend outpatient follow-up with her primary care physician to see what she runs out of the hospital and if persistently greater than 130/80 consider adding low-dose antihypertensives DVT prophylaxis -Per primary Disposition: -Okay from a medical standpoint for discharge once stable per surgical team Charges/Coding Visit Charges Inpatient E&M: [id number] [facility] L1
[2024-06-12] MEDS: Acetaminophen 500 MG Tablet 1000 MG PO (13:51)
[2024-06-12 13:53] VITALS: BP 147/81; PULSE 68; RESP 18; TEMP 37; O2SAT 93
[2024-06-16 10:41] VITALS: BP 157/96; PULSE 78; RESP 16; TEMP 36.9; O2SAT 99
== END 2024-06-12 14:45 | disposition home health service (06) ==
LOC: MS3 06-12 07:03 → SDC 06-12 15:02 → MS3 06-12 15:02
PROVIDERS: Anesthesiology Pain Medicine; Admitting Provider Student in an Organized Health Care Education/Training Program; PCP Family Medicine; Referring Provider Student in an Organized Health Care Education/Training Program; Visit Provider Student in an Organized Health Care Education/Training Program
PROC: (CPT 24685; principal; 2024-06-11 13:30)
DX: S52.021A Displaced fracture of olecranon process without intraarticular extension of right ulna, initial encounter for closed fracture (principal); R94.31 Abnormal electrocardiogram [ECG] [EKG]; R03.0 Elevated blood-pressure reading, without diagnosis of hypertension; Z79.899 Other long term (current) drug therapy; M19.90 Unspecified osteoarthritis, unspecified site; I73.9 Peripheral vascular disease, unspecified; R32 Unspecified urinary incontinence; S70.01XA Contusion of right hip, initial encounter; W19.XXXA Unspecified fall, initial encounter; Y92.481 Parking lot as the place of occurrence of the external cause
CPT/HCPCS: 24685; 01740; 36415; 73070; 76000; 80048; 84484; 85025; 93005; 94668; 96365; 96366; 96375; 97162; 97166; 99221; C1713; A4216; G0378; J2405

== ENCOUNTER → 2024-10-02 | Outpatient (CLI) | payer MEDICARE, SELFPAY ==
--- NOTE | 2024-10-02 12:28 | BD_ITS ---
PROCEDURE: DEXA BONE DENSITY STUDY 10/02/2024 REASON FOR EXAM: F, age 84 y/o . Postmenopausal. TECHNIQUE: DXA scan of sites with data reported below. REFERENCE LINKS: ISCD Adult Positions COMPARISON: None FINDINGS: BMD and T-SCORES Lumbar spine: 0.83 day g/cm2, T-score -1.9 Levels: L1 through L4 Left 1/3 radius: 0.333 g/cm2, T-score -4.6 The World Health Organization has defined the following categories based on bone density: Normal bone density: T-score equal to or greater than -1.0 Osteopenia: T-score between -1.0 and -2.5 Osteoporosis: T-score equal to or less than -2.5 The patient meet the pharmacological treatment recommendations for prevention of osteoporosis. BD/Dexa Bone Density Study IMPRESSION: OSTEOPOROSIS. Recommend follow-up as clinically warranted. Reading Location: [place] [id number]
== END | disposition home or self-care (01) ==
LOC: OPBD 12:23
PROVIDERS: PCP Family Medicine; Referring Provider Family Medicine; Visit Provider Family Medicine
DX: N95.9 Unspecified menopausal and perimenopausal disorder (principal)
CPT/HCPCS: 77080

== ENCOUNTER → 2024-12-22 | Outpatient (CLI) | payer MEDICARE, SELFPAY | END | disposition home or self-care (01) | LOC: LABSPEC 17:01 | PROVIDERS: PCP Family Medicine | DX: R35.0 Frequency of micturition (principal) | CPT/HCPCS: 87077; 87086; 87088; 87186 ==

== ENCOUNTER → 2025-04-23 | Outpatient (CLI) | payer MEDICARE, SELFPAY ==
--- NOTE | 2025-04-23 15:18 | RAD_ITS ---
PROCEDURE: SHOULDER MIN 2 VIEWS 04/23/2025 REASON FOR EXAM: LEFT SHOULDER PAIN TECHNIQUE: Procedure Code: RADSH Modality: DX Procedure: SHOULDER MIN 2 VIEWS Laterality: FINDINGS: Bones: No acute findings. Osteopenia Joints: Severe glenohumeral joint degenerative changes Soft tissues: No gross acute findings.Visualized lung is clear Other: No acute findings. RAD/Shoulder min 2 Views IMPRESSION: No acute osseous findings. Reading Location: [facility]
== END | disposition home or self-care (01) ==
LOC: MTRAD 15:18
PROVIDERS: PCP Family Medicine; Referring Provider Family Medicine; Visit Provider Family Medicine
DX: M25.512 Pain in left shoulder (principal)
CPT/HCPCS: 73030